=== PATIENT | male | born 1965 | race Caucasian/White ===

== ENCOUNTER 2017-10-02 11:20 | Inpatient (IN) | payer SELFPAY ==
[2017-10-02] VITALS (9 sets, daily range): BP systolic 107–130; BP diastolic 59–74; PULSE 70–80; RESP 14–20; TEMP 98.1–100.1; O2SAT 96–100
[~2017-10-02] VITALS: Ht 182.9 cm; Wt 80.0 kg
[~2017-10-02 11:20] MED LIST: CEPH500T PO; HYDR10TA16 PO; PERM5CRE TOPICAL; PERM5CRE11 TOPICAL; SULF1TAB47 PO; Z.0.NO CURRENT MEDS
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
[2017-10-02] MEDS ORDERED: SODIUM CHLORIDE 0.9% FLUSH 10 ML FLUSH IVF PRN (11:45)
[2017-10-02 12:22] LABS: BASOPHIL # 0.1 TH/MM3 (0-0.2); BASOPHIL % 0.8 % (0.0-2.0); EOSINOPHIL # 0.1 TH/MM3 (0-0.4); EOSINOPHIL % 1.8 % (0.0-4.0); LYMPH % 15.2 % (9.0-44.0); MEAN CELL VOLUME 77.4 FL (80.0-100.0); MEAN CORPUSCULAR HEMOGLOBIN 24.3 PG (27.0-34.0); MEAN CORPUSCULAR HGB CONC 31.4 % (32.0-36.0); MONO % 9.2 % (0.0-8.0); PLATELET COUNT 190 TH/MM3 (150-450); RED BLOOD COUNT 2.35 MIL/MM3 (4.50-5.90); RED CELL DISTRIBUTION WIDTH 18.9 % (11.6-17.2); WHITE BLOOD COUNT 6.8 TH/MM3 (4.0-11.0)
--- NOTE | 2017-10-02 12:22 | RADRPT ---
EXAM DATE/TIME: 10/02/2017 12:16 [facility] COMPARISON: No previous studies available for comparison. INDICATIONS : Bilateral lower extremity edema for 4 days, some upper abdominal discomfort, slightly short of breath MEDICAL HISTORY : None. SURGICAL HISTORY : None. ENCOUNTER: Initial ACUITY: 4 - 6 days PAIN SCORE: 0/10 LOCATION: Bilateral FINDINGS: A single view of the chest demonstrates the lungs to be symmetrically aerated with bibasilar linear a telectatic changes. There is some blunting of both costophrenic angles possibly representing associat ed small effusions. Heart size is normal. Osseous structures are intact. CONCLUSION: 1. Bibasilar linear atelectatic changes with possible small effusions. 2. No confluent infiltrate. Silvestre Flores MD on October 02, 2017 at 12:19 Board Certified Radiologist. This report was verified electronically.
[2017-10-02 12:26] LABS: HEMO FLAGS AUTO DIFF
[2017-10-02 12:31] LABS: HEMATOCRIT 18.2 % (39.0-51.0)
[2017-10-02 12:32] LABS: APTT (PATIENT) 29.4 SEC (24.3-30.1); INTERNATIONAL NORMALIZED RATIO 1.1 RATIO
[2017-10-02] MEDS ORDERED: SODIUM CHLOR 0.9% 1000 ML INJ 1,000 ML IV ONE (12:45)
[2017-10-02 12:47] LABS: ALT (GPT) 46 U/L (12-78); ANION GAP 9 MEQ/L (5-15); AST (GOT) 37 U/L (15-37); BICARBONATE 22.9 MEQ/L (21.0-32.0); BLOOD UREA NITROGEN 14 MG/DL (7-18); CHLORIDE 105 MEQ/L (98-107); GLOMERULAR FILTRATION RATE 148 ML/MIN (>89); POTASSIUM 3.7 MEQ/L (3.5-5.1); SODIUM (NA) 137 MEQ/L (136-145)
[2017-10-02 12:49] LABS: ALKALINE PHOSPHATASE 120 U/L (45-117); TOTAL BILIRUBIN ADULT 0.4 MG/DL (0.2-1.0)
[2017-10-02 13:06] LABS: BLOOD, URINE NEG (NEG); COMMENT (UR) CULT NOT INDICATED; CULTURE IF INDICATED CULT NOT INDICATED; GLUCOSE,URINE NEG (NEG); KETONE, URINE NEG (NEG); MUCUS URINE MANY /lpf (OCC); NITRITE,URINE NEG (NEG); URINE COLOR YELLOW (YELLW/STRAW)
[2017-10-02 13:07] LABS: REVIEW FLAG FINAL
[2017-10-02 13:08] LABS: HEMATOCRIT 17.1 % (39.0-51.0)
[2017-10-02] MEDS ORDERED: diphenhydrAMINE HCL 25 MG CAP PO ONE (13:15)
[2017-10-02] MEDS ORDERED: SODIUM CHLOR 0.9% 250 ML INJ 250 ML IV ONE (13:15)
[2017-10-02] MEDS ORDERED: ACETAMINOPHEN 325 MG TAB PO ONE (13:15)
[2017-10-02 13:33] LABS: SCAN/DIFF AUTO DIFF CONFIRMED
[2017-10-02] MEDS ORDERED: MORPHINE SULFATE 4 MG/ML INJ IV PUSH PRN (14:00)
[2017-10-02] MEDS ORDERED: ONDANSETRON HCL 4 MG/2 ML VIAL IVP PRN (14:00)
[2017-10-02] MEDS ORDERED: SODIUM CHLORIDE 0.9% FLUSH 10 ML FLUSH IV FLUSH PRN (14:00)
[2017-10-02] MEDS ORDERED: MAGNESIUM HYDROXIDE SUSP 30 ML CUP PO PRN (14:00)
[2017-10-02] MEDS ORDERED: NALOXONE HCL 0.4 MG/ML AMP IV PUSH PRN (14:00)
[2017-10-02] MEDS ORDERED: cloNIDine HCL 0.1 MG TAB PO PRN (15:45)
[2017-10-02] MEDS ORDERED: MORPHINE SULFATE 15 MG CONTROLLED RELEASE TAB PO ONE (15:45)
--- NOTE | 2017-10-02 16:26 | PD.CONS ---
HPI History of Present Illness This is a 52 year old male with Hep C who presented with lower leg swelling. Denies bleeding currently but admits black tarry stool a couple weeks ago for a couple days. Admits episode of bright red blood in the stool "months" ago. Admits RUQ pain for the last year, worsening and constant. NO exacerbating or relieving facotrs. Admits abd swelling for the last week but it is improving. Admits loss 40lbs in the last 9 months, unintended. Never had EGD or colonoscopy. He was pos for hep C 4 y ago but has not had further testing or follow up. (Karli Mitchell) PFSH Past Medical History ?Hep C Past Surgical History none (Karli Mitchell) Coded Allergies: No Known Allergies (Verified Allergy, Unknown, 10/02/17) Family History denies Social History quit drinking 9mos ago, prior was heavy drinker for 30 y 1ppd admits IV use heroin (Karli Mitchell) Review of Systems Constitutional: COMPLAINS OF: Weight loss, DENIES: Fever Eyes: DENIES: Blurred vision Ears, nose, mouth, throat: DENIES: Hearing loss Respiratory: DENIES: Hemoptysis Cardiovascular: DENIES: Chest pain Gastrointestinal: COMPLAINS OF: Abdominal pain, Black stools, DENIES: Bloody stools, Constipation, Diarrhea, Nausea, Vomiting, Hematemesis Genitourinary: DENIES: Hematuria Musculoskeletal: DENIES: Joint Swelling Integumentary: DENIES: Jaundice Hematologic/lymphatic: DENIES: Bruising Neurologic: DENIES: Abnormal gait Psychiatric: DENIES: Confusion (Karli Mitchell) GI Exam Vitals I&O Vital Signs Date Time Temp Pulse Resp B/P (MAP) Pulse Ox O2 Delivery O2 Flow Rate FiO2 10/02/17 14:40 74 14 109/67 (81) 98 Room Air 10/02/17 13:17 70 16 112/60 (77) 96 Room Air 10/02/17 11:21 99.1 80 20 118/59 (78) 100 Room Air Imaging e Laboratory Tests Test 10/02/17 11:55 10/02/17 12:00 10/02/17 12:50 White Blood Count 6.8 TH/MM3 (4.0-11.0) Red Blood Count 2.35 MIL/MM3 (4.50-5.90) Hemoglobin 5.7 GM/DL (13.0-17.0) 5.4 GM/DL (13.0-17.0) Hematocrit 18.2 % (39.0-51.0) 17.1 % (39.0-51.0) Mean Corpuscular Volume 77.4 FL (80.0-100.0) Mean Corpuscular Hemoglobin 24.3 PG (27.0-34.0) Mean Corpuscular Hemoglobin Concent 31.4 % (32.0-36.0) Red Cell Distribution Width 18.9 % (11.6-17.2) Platelet Count 190 TH/MM3 (150-450) Mean Platelet Volume 8.0 FL (7.0-11.0) Neutrophils (%) (Auto) 73.0 % (16.0-70.0) Lymphocytes (%) (Auto) 15.2 % (9.0-44.0) Monocytes (%) (Auto) 9.2 % (0.0-8.0) Eosinophils (%) (Auto) 1.8 % (0.0-4.0) Basophils (%) (Auto) 0.8 % (0.0-2.0) Neutrophils # (Auto) 5.0 TH/MM3 (1.8-7.7) Lymphocytes # (Auto) 1.0 TH/MM3 (1.0-4.8) Monocytes # (Auto) 0.6 TH/MM3 (0-0.9) Eosinophils # (Auto) 0.1 TH/MM3 (0-0.4) Basophils # (Auto) 0.1 TH/MM3 (0-0.2) CBC Comment AUTO DIFF Differential Comment AUTO DIFF CONFIRMED Prothrombin Time 12.0 SEC (9.8-11.6) Prothromb Time International Ratio 1.1 RATIO Activated Partial Thromboplast Time 29.4 SEC (24.3-30.1) Blood Urea Nitrogen 14 MG/DL (7-18) Creatinine 0.58 MG/DL (0.60-1.30) Random Glucose 89 MG/DL (74-106) Total Protein 6.1 GM/DL (6.4-8.2) Albumin 2.6 GM/DL (3.4-5.0) Calcium Level 7.5 MG/DL (8.5-10.1) Alkaline Phosphatase 120 U/L (45-117) Aspartate Amino Transf (AST/SGOT) 37 U/L (15-37) Alanine Aminotransferase (ALT/SGPT) 46 U/L (12-78) Total Bilirubin 0.4 MG/DL (0.2-1.0) Sodium Level 137 MEQ/L (136-145) Potassium Level 3.7 MEQ/L (3.5-5.1) Chloride Level 105 MEQ/L (98-107) Carbon Dioxide Level 22.9 MEQ/L (21.0-32.0) Anion Gap 9 MEQ/L (5-15) Estimat Glomerular Filtration Rate 148 ML/MIN (>89) B-Type Natriuretic Peptide 191 PG/ML (0-100) Lipase 240 U/L (73-393) Urine Color YELLOW (YELLW/STRAW) Urine Turbidity HAZY (CLEAR) Urine pH 6.0 (5.0-8.5) Urine Specific [place] 1.033 (1.002-1.035) Urine Protein 30 mg/dL (NEG-TRACE) Urine Glucose (UA) NEG mg/dL (NEG) Urine Ketones NEG mg/dL (NEG) Urine Occult Blood NEG (NEG) Urine Nitrite NEG (NEG) Urine Bilirubin NEG (NEG) Urine Urobilinogen 2.0 MG/DL (LESS THAN Urine Leukocyte Esterase TRACE (NEG) Urine RBC 2 /hpf (0-3) Urine WBC 2 /hpf (0-5) Urine Mucus MANY /lpf (OCC) Microscopic Urinalysis Comment CULT NOT INDICATED Last Impressions Chest X-Ray 10/02/17 1144 Signed Impressions: Service Date/Time: September 12:16 - CONCLUSION: 1. Bibasilar linear atelectatic changes with possible small effusions. 2. No confluent infiltrate. Silvestre Flores MD Laboratory Test 10/02/17 11:55 10/02/17 12:00 10/02/17 12:50 White Blood Count 6.8 TH/MM3 Red Blood Count 2.35 MIL/MM3 Hemoglobin 5.7 GM/DL 5.4 GM/DL Hematocrit 18.2 % 17.1 % Mean Corpuscular Volume 77.4 FL Mean Corpuscular Hemoglobin 24.3 PG Mean Corpuscular Hemoglobin Concent 31.4 % Red Cell Distribution Width 18.9 % Platelet Count 190 TH/MM3 Mean Platelet Volume 8.0 FL Neutrophils (%) (Auto) 73.0 % Lymphocytes (%) (Auto) 15.2 % Monocytes (%) (Auto) 9.2 % Eosinophils (%) (Auto) 1.8 % Basophils (%) (Auto) 0.8 % Neutrophils # (Auto) 5.0 TH/MM3 Lymphocytes # (Auto) 1.0 TH/MM3 Monocytes # (Auto) 0.6 TH/MM3 Eosinophils # (Auto) 0.1 TH/MM3 Basophils # (Auto) 0.1 TH/MM3 CBC Comment AUTO DIFF Differential Comment AUTO DIFF CONFIRMED Prothrombin Time 12.0 SEC Prothromb Time International Ratio 1.1 RATIO Activated Partial Thromboplast Time 29.4 SEC Blood Urea Nitrogen 14 MG/DL Creatinine 0.58 MG/DL Random Glucose 89 MG/DL Total Protein 6.1 GM/DL Albumin 2.6 GM/DL Calcium Level 7.5 MG/DL Alkaline Phosphatase 120 U/L Aspartate Amino Transf (AST/SGOT) 37 U/L Alanine Aminotransferase (ALT/SGPT) 46 U/L Total Bilirubin 0.4 MG/DL Sodium Level 137 MEQ/L Potassium Level 3.7 MEQ/L Chloride Level 105 MEQ/L Carbon Dioxide Level 22.9 MEQ/L Anion Gap 9 MEQ/L Estimat Glomerular Filtration Rate 148 ML/MIN B-Type Natriuretic Peptide 191 PG/ML Lipase 240 U/L Urine Color YELLOW Urine Turbidity HAZY Urine pH 6.0 Urine Specific [place] 1.033 Urine Protein 30 mg/dL Urine Glucose (UA) NEG mg/dL Urine Ketones NEG mg/dL Urine Occult Blood NEG Urine Nitrite NEG Urine Bilirubin NEG Urine Urobilinogen 2.0 MG/DL Urine Leukocyte Esterase TRACE Urine RBC 2 /hpf Urine WBC 2 /hpf Urine Mucus MANY /lpf Microscopic Urinalysis Comment CULT NOT INDICATED Physical Examination HEENT: PERRL; normocephalic; atraumatic; no jaundice. CHEST: CTA CARDIAC: RRR + murmur ABDOMEN: Soft, mildly distended, RUQ TTP, hepatomegaly; bowel sounds are present in all four quadrants. EXTREMITIES: No clubbing, cyanosis; +2 pitting edema BLE SKIN: Normal; no rash; no jaundice. NUCLEAR INSTRUCTOR: No focal deficits; alert and oriented times three. (Karli Mitchell) Assessment and Plan Plan ASSESSMENT - anemia - hgb 5.7 on admission. microcytic hypochromic. has had previous episodes black tarry stool, blood in stool but none currently. never had EGD or colonoscopy - RUQ pain, abd distention - unclear etiology. hepatomegaly. hx hep c per pt. PLAN - EGD/colonoscopy in am - obtain consent - clears today - npo after midnight - mg citrate prep - await blood transfusion - US liver - hep profile - monitor labs - further recs to follow This pt seen by myself and Dr Bruce and this note is written on his behalf (Karli Mitchell) Physician Comments Patient seen and examined Agree with above Continue with current supportive care Monitor labs Plan for an EGD and a colonoscopy tomorrow Liver workup (Mook Bruce MD) Karli Mitchell Oct 02, 2017 16:26 Mook Bruce MD Oct 02, 2017 23:01
--- NOTE | 2017-10-02 17:57 | HHI.HP ---
[facility] Service [facility] Primary Care Physician No Primary Care Physician Admission Diagnosis Anemia, Edema, Liver disease. Diagnoses: (1) Severe anemia Diagnosis: Principal (2) Liver disease Diagnosis: Principal (3) Hepatitis C Diagnosis: Principal (4) GI bleed Diagnosis: Principal Travel History International Travel<30 Days: No Contact w/Intl Traveler <30 Da: No Traveled to Known Affected Are: No History of Present Illness Mr. Beard is a 52-year-old male. He came into the hospital secondary to bilateral lower extremity swelling. He has known hepatitis C and these extremities may be swollen secondary to chronic liver disease. He is never had a workup to quantify the degree of liver disease that he has. Blood work was obtained and shows a hemoglobin of 5.4. Patient has not had many symptoms of this may represent a slow bleed. I discussed signs and symptoms of GI bleeding with the patient and he reports that he has recurrent and intermittent episodes of melena. Coagulopathy versus ulcer versus varices could match his clinical status. Lower extremity swelling can be present in the presence of the degree of anemia that he has. So, this could be another etiology for his lower extremity edema. Finally he admits that he uses heroin he last used heroin last night, he has some concerns that he may start withdrawing. No other complaints. Review of Systems Constitutional: COMPLAINS OF: Fatigue, DENIES: Fever, Chills, Night Sweats Eyes: DENIES: Blurred vision, Diplopia, Eye inflammation, Eye pain Ears, nose, mouth, throat: DENIES: Tinnitus, Hearing loss, Vertigo Respiratory: DENIES: Apneas, Cough, Snoring, Wheezing, Hemoptysis, Shortness of breath Cardiovascular: COMPLAINS OF: Lower Extremity Edema, DENIES: Chest pain, Palpitations, Syncope Gastrointestinal: COMPLAINS OF: Black stools, DENIES: Abdominal pain, Bloody stools Musculoskeletal: DENIES: Joint pain, Muscle aches, Stiffness Integumentary: DENIES: Abnormal pigmentation, Nail changes, Pruritus, Rash Hematologic/lymphatic: DENIES: Bruising, Lymphadenopathy Immunologic/allergic: DENIES: Eczema, Urticaria Neurologic: DENIES: Abnormal gait, Headache, Paresthesias Psychiatric: DENIES: Anxiety, Confusion, Hallucinations Past Family Social History Past Medical History Hepatitis C Liver disease Heroin abuse Presbycusis Past Surgical History Tonsillectomy Reported Medications Reported Meds & Active Scripts Active No Active Prescriptions or Reported Medications Allergies: Coded Allergies: No Known Allergies (Verified Allergy, Unknown, 10/02/17) Active Ordered Medications Administered Medications Medications (Trade) Dose Ordered Sig/Concepcion Route PRN Reason Start Time Stop Time Status Last Admin Dose Admin Sodium Chloride 250 ml @ 15 mls/hr ONCE ONCE IV 10/02/17 13:15 10/03/17 05:54 10/02/17 17:29 Family History Diabetes mellitus type 2 in mother Social History History of alcohol abuse, quit drinking 6 months ago Smoking 1ppd IV Drug abuse with Heroin Physical Exam Vital Signs Vital Signs Date Time Temp Pulse Resp B/P (MAP) Pulse Ox O2 Delivery O2 Flow Rate FiO2 10/02/17 16:52 100.1 75 18 118/71 (87) 99 10/02/17 16:49 10/02/17 14:40 74 14 109/67 (81) 98 Room Air 10/02/17 13:17 70 16 112/60 (77) 96 Room Air 10/02/17 11:21 99.1 80 20 118/59 (78) 100 Room Air Physical Exam GENERAL: NAD, A&Ox3 HEAD: Normocephalic. NECK: Supple, trachea midline. No lymphadenopathy. EYES: No scleral icterus. No injection or drainage. CARDIOVASCULAR: Regular rate and rhythm without murmurs, gallops, or rubs. RESPIRATORY: Breath sounds equal bilaterally. No accessory muscle use. GASTROINTESTINAL: Abdomen soft, non-tender, nondistended. MUSCULOSKELETAL: No cyanosis. Bilateral lower extremity pitting edema as high as the knees. SKIN: Warm and dry. NEURO: No focal neurological deficitis. Laboratory Laboratory Tests Test 10/02/17 11:55 10/02/17 12:00 10/02/17 12:50 White Blood Count 6.8 Red Blood Count 2.35 Hemoglobin 5.7 5.4 Hematocrit 18.2 17.1 Mean Corpuscular Volume 77.4 Mean Corpuscular Hemoglobin 24.3 Mean Corpuscular Hemoglobin Concent 31.4 Red Cell Distribution Width 18.9 Platelet Count 190 Mean Platelet Volume 8.0 Neutrophils (%) (Auto) 73.0 Lymphocytes (%) (Auto) 15.2 Monocytes (%) (Auto) 9.2 Eosinophils (%) (Auto) 1.8 Basophils (%) (Auto) 0.8 Neutrophils # (Auto) 5.0 Lymphocytes # (Auto) 1.0 Monocytes # (Auto) 0.6 Eosinophils # (Auto) 0.1 Basophils # (Auto) 0.1 CBC Comment AUTO DIFF Differential Comment AUTO DIFF CONFIRMED Prothrombin Time 12.0 Prothromb Time International Ratio 1.1 Activated Partial Thromboplast Time 29.4 Blood Urea Nitrogen 14 Creatinine 0.58 Random Glucose 89 Total Protein 6.1 Albumin 2.6 Calcium Level 7.5 Alkaline Phosphatase 120 Aspartate Amino Transf (AST/SGOT) 37 Alanine Aminotransferase (ALT/SGPT) 46 Total Bilirubin 0.4 Sodium Level 137 Potassium Level 3.7 Chloride Level 105 Carbon Dioxide Level 22.9 Anion Gap 9 Estimat Glomerular Filtration Rate 148 B-Type Natriuretic Peptide 191 Lipase 240 Urine Color YELLOW Urine Turbidity HAZY Urine pH 6.0 Urine Specific [place] 1.033 Urine Protein 30 Urine Glucose (UA) NEG Urine Ketones NEG Urine Occult Blood NEG Urine Nitrite NEG Urine Bilirubin NEG Urine Urobilinogen 2.0 Urine Leukocyte Esterase TRACE Urine RBC 2 Urine WBC 2 Urine Mucus MANY Microscopic Urinalysis Comment CULT NOT INDICATED Result Diagram: 10/02/17 1250 10/02/17 1155 Caprini VTE Risk Assessment Caprini VTE Risk Assessment: Mod/High Risk (score >= 2) VTE Pharm Contraindication: High risk for bleeding VTE [facility] Contraindication: Severe LE edema Caprini Risk Assessment Model Point Value = 1 Point Value = 2 Point Value = 3 Point Value = 5 Age 41-60 Minor surgery BMI > 25 kg/m2 Swollen legs Varicose veins or History of unexplained or recurrent spontaneous Oral contraceptives or hormone replacement Sepsis (< 1 month) Serious lung disease, including pneumonia (< 1 month) Abnormal pulmonary function Acute myocardial infarction Congestive heart failure (< 1 month) History of inflammatory bowel disease Medical patient at bed rest Age 61-74 Arthroscopic surgery Major open surgery (> 45 min) Laparoscopic surgery (> 45 min) Malignancy Confined to bed (> 72 hours) Immobilizing plaster cast Central venous access Age >= 75 History of VTE Family history of VTE Factor V Leiden Prothrombin [id number] Lupus anticoagulant Anticardiolipin antibodies Elevated serum homocysteine Heparin-induced thrombocytopenia Other congenital or acquired thrombophilia Stroke (< 1 month) Elective arthroplasty Hip, pelvis, or leg fracture Acute spinal cord injury (< 1 month) Prophylaxis Regimen Total Risk Factor Score Risk Level Prophylaxis Regimen 0-1 Low Early ambulation 2 Moderate Order ONE of the following: *Sequential Compression Device (SCD) *Heparin 5000 units SQ BID 3-4 Higher Order ONE of the following medications: *Heparin 5000 units SQ TID *Enoxaparin/Lovenox 40 mg SQ daily (WT < 150 kg, CrCl > 30 mL/min) *Enoxaparin/Lovenox 30 mg SQ daily (WT < 150 kg, CrCl > 10-29 mL/min) *Enoxaparin/Lovenox 30 mg SQ BID (WT < 150 kg, CrCl > 30 mL/min) AND/OR *Sequential Compression Device (SCD) 5 or more Highest Order ONE of the following medications: *Heparin 5000 units SQ TID (Preferred with Epidurals) *Enoxaparin/Lovenox 40 mg SQ daily (WT < 150 kg, CrCl > 30 mL/min) *Enoxaparin/Lovenox 30 mg SQ daily (WT < 150 kg, CrCl > 10-29 mL/min) *Enoxaparin/Lovenox 30 mg SQ BID (WT < 150 kg, CrCl > 30 mL/min) AND *Sequential Compression Device (SCD) Assessment and Plan Problem List: (1) Severe anemia ICD Code: D64.9 - Anemia, unspecified (2) GI bleed ICD Code: K92.2 - Gastrointestinal hemorrhage, unspecified (3) Hepatitis C ICD Code: B19.20 - Unspecified viral hepatitis C without hepatic coma (4) Liver disease ICD Code: K76.9 - Liver disease, unspecified Assessment and Plan Assessment and plan 52-year-old male admitted secondary to severe anemia Severe anemia Recent GI bleed Transfused 2 units packed red blood cells on 10/02/17 Monitor for clinical signs and symptoms Follow CBC Etiology may be related to recurrent GI bleeds Etiology also may be complicated by liver disease GI consulted for history of recurrent GI bleeds, per patient Hepatitis C Liver disease Degree of liver disease unknown GI consulted Nicotine dependence NicoDerm Heroin abuse Heroin withdrawal MS Contin every 12 hours As needed IV morphine As needed Xanax As needed clonidine HIV screen Hepatitis panel Lower extremity edema Start Lasix daily Monitor for improvement DVT prophylaxis Not a candidate for anticoagulation due to degree of anemia Not a good candidate for SCDs due to degree of edema Physician Certification 2 Midnight Certification Type: Admission for Inpatient Services Order for Inpatient Services The services are ordered in accordance with Medicare regulations or non- Medicare payer requirements, as applicable. In the case of services not specified as inpatient-only, they are appropriately provided as inpatient services in accordance with the 2-midnight benchmark. Estimated LOS (days): 2 days is the estimated time the patient will need to remain in the hospital, assuming treatment plan goals are met and no additional complications. Post-Hospital Plan: Home Jhonny Alejandre MD Oct 02, 2017 17:57
[2017-10-02] MEDS ORDERED: NICOTINE 21 MG/24 HR PATCH T-DERMAL ONE (18:00)
[2017-10-02] MEDS ORDERED: ALPRAZolam 0.5 MG TAB PO PRN (18:00)
[2017-10-02] MEDS ORDERED: MAGNESIUM CITRATE SOLN 300 ML BTL PO ONE ×2 (18:00→21:00)
[2017-10-02] MEDS ORDERED: OLANZapine 10 MG TAB PO ONE (18:45)
--- NOTE | 2017-10-02 18:47 | RADRPT ---
EXAM DATE/TIME: 10/02/2017 18:13 [facility] COMPARISON: No previous studies available for comparison. INDICATIONS : Right upper quadrant pain with history of Hepatitis C. MEDICAL HISTORY : Hepatitis C. ETOH abuse. SURGICAL HISTORY : Tonsillectomy. ENCOUNTER: Initial ACUITY: 1 day PAIN SCORE: 2/10 LOCATION: Abdomen. MEASUREMENTS: LIVER: 16.5 cm length COMMON DUCT: 2 mm RIGHT KIDNEY: 12.8 x 6.9 x 6.1 cm SPLEEN: 14.6 cm length FINDINGS: LIVER: The liver is diffusely heterogeneous with nodular liver surface. No focal hepatic mass is seen. There is moderate ascites seen. COMMON DUCT: No intraluminal mass or stone visualized. GALLBLADDER: The gallbladder wall is thickened. Gallstones are not seen. PANCREAS: The visualized portions are within normal limits. RIGHT KIDNEY: No hydronephrosis, stone or mass. SPLEEN: The spleen is enlarged. CONCLUSION: 1. Cirrhotic appearing liver with moderate ascites. 2. Nonspecific splenomegaly. This could be from portal hypertension. 3. Thickening of the gallbladder wall. This is nonspecific. It can be seen with hepatic dysfunction. Gallstones were not seen. Sandip Luna MD on October 02, 2017 at 18:44 Board Certified Radiologist. This report was verified electronically.
[2017-10-02] MEDS: SODIUM CHLORIDE 0.9% FLUSH 10 ML FLUSH IV FLUSH SCH (20:52)
[2017-10-02] MEDS: MORPHINE SULFATE 4 MG/ML INJ IV PUSH PRN (22:41)
[2017-10-03] VITALS (10 sets, daily range): BP systolic 109–131; BP diastolic 59–80; PULSE 64–78; RESP 18–20; TEMP 98–99; O2SAT 92–100
[2017-10-03] MEDS: MORPHINE SULFATE 4 MG/ML INJ IV PUSH PRN ×3 (04:31→19:46)
[2017-10-03] MEDS ORDERED: LACTATED RINGER'S 1000 ML IV PRN (06:15)
[2017-10-03] MEDS ORDERED: METOPROLOL TARTRATE 25 MG TAB PO PRN (06:15)
[2017-10-03] MEDS ORDERED: CHLORHEXIDINE GLUCONATE 2 % 1 PACK (2 CLOTHS) TOPICAL PRN (06:15)
[2017-10-03] MEDS ORDERED: SODIUM CHLORID 0.9% 500 ML IV PRN (06:15)
[2017-10-03] MEDS ORDERED: POVIDONE IODINE 5% (ANTISEPSIS KIT) 4 APPLICATIONS EACH NARE PRN (06:15)
[2017-10-03] MEDS: MORPHINE SULFATE 15 MG CONTROLLED RELEASE TAB PO SCH ×2 (08:09→21:33)
[2017-10-03] MEDS: REMOVE OLD PATCH T-DERMAL SCH (08:10)
[2017-10-03] MEDS: SODIUM CHLORIDE 0.9% FLUSH 10 ML FLUSH IV FLUSH SCH ×2 (08:10→19:47)
[2017-10-03] MEDS: NICOTINE 21 MG/24 HR PATCH T-DERMAL SCH (08:10)
[2017-10-03 09:51] LABS: AUTOMATED NEUTROPHIL # 3.4 TH/MM3 (1.8-7.7); BASOPHIL # 0.1 TH/MM3 (0-0.2); BASOPHIL % 1.1 % (0.0-2.0); EOSINOPHIL # 0.1 TH/MM3 (0-0.4); EOSINOPHIL % 1.6 % (0.0-4.0); HEMATOCRIT 25.4 % (39.0-51.0); HEMO FLAGS DIFF FINAL; LYMPHOCYTE # 1.3 TH/MM3 (1.0-4.8); MEAN CELL VOLUME 77.9 FL (80.0-100.0); MEAN CORPUSCULAR HEMOGLOBIN 25.3 PG (27.0-34.0); MEAN CORPUSCULAR HGB CONC 32.5 % (32.0-36.0); NEUT % 65.3 % (16.0-70.0); PLATELET COUNT 205 TH/MM3 (150-450); RED BLOOD COUNT 3.26 MIL/MM3 (4.50-5.90); RED CELL DISTRIBUTION WIDTH 18.5 % (11.6-17.2); WHITE BLOOD COUNT 5.2 TH/MM3 (4.0-11.0)
[2017-10-03] MEDS ORDERED: INFLUENZA VIRUS VACCINE (QUADRIVALENT) 0.5 ML SYR IM ONE (10:00)
[2017-10-03] MEDS ORDERED: PNEUMOCOCCAL POLYVALENT INJ 25 MCG/0.5 ML SYR IM ONE (10:00)
--- NOTE | 2017-10-03 11:25 | PD.PROCEDR ---
GI Procedure REFERRING PHYSICIAN Dr. Alejandre PROCEDURE PERFORMED EGD with biopsy followed by colonoscopy with snare polypectomy INDICATION FOR PROCEDURE Anemia, abdominal pain, PROCEDURE: The procedure, risks and benefits were discussed with Mr. Beard and informed consent was obtained. Anesthesia sedated him with Diprivan. He was placed in the left lateral decubitus position. EGD: The Pentax videoscope was introduced through the oropharynx and advanced to the second portion of the duodenum under direct visualization. Retroflexion was performed in the stomach. FINDINGS: Esophagus this was normal The stomach this too appeared to be unremarkable within normal limits The duodenum this too was normal random biopsies were taken for further evaluation Colonoscopy: The Pentax videoscope was introduced through the rectum and advanced to cecum where the ileocecal valve and appendiceal orifice were identified. Retroflexion was performed in the rectum. Colonic prep was good but there was quite a bit of spasms and incomplete distention in several segments of the colon FINDINGS: Colonic withdrawal time greater than 6 minutes as the scope was slowly withdrawn colonic mucosa was carefully inspected the patient was noted to have 3 polyps 2 in the rectum and one in the sigmoid these were medium-sized sessile they were excised using cold snare technique one of the polyps was lost the patient was also noted to have mild diverticulosis of the sigmoid region otherwise colonic examination was unremarkable so as retroflexion in rectal examination ESTIMATED BLOOD LOSS: None SPECIMENS REMOVED: Duodenal and colonic samples COMPLICATIONS: None IMPRESSION: Normal EGD Diverticulosis Colon polyps PLAN: Await biopsies Small bowel follow-through Colonoscopy in 3 years Mook Bruce MD Oct 03, 2017 11:25
[2017-10-03] MEDS ORDERED: MAGNESIUM CITRATE SOLN 300 ML BTL PO ONE ×2 (12:00→18:00)
--- NOTE | 2017-10-03 12:45 | HHI.PR ---
Subjective Remarks Hgb level has increased to 8.3 status post transfusion. EGD and colonoscopy has not revealed any acute pathology to explain his degree of anemia. Diverticulosis is present on colonoscopy. No ulcers or varices on EGD. Patient complains of upper abdominal pain which is a chronic problem for him. Objective Vital Signs Date Time Temp Pulse Resp B/P (MAP) Pulse Ox O2 Delivery O2 Flow Rate FiO2 10/03/17 11:36 66 16 123/88 (100) 99 Room Air 10/03/17 11:17 98.1 68 16 120/67 (84) 99 Room Air 10/03/17 08:30 Room Air 10/03/17 08:00 98.3 64 20 123/67 (85) 100 10/03/17 04:00 98.1 68 18 109/59 (76) 100 10/03/17 01:00 Room Air 10/03/17 00:52 98.0 66 20 123/68 (86) 100 10/03/17 00:20 66 10/03/17 00:15 98.0 66 20 123/68 100 10/02/17 23:00 14 10/02/17 20:50 98.3 73 14 118/67 99 10/02/17 20:34 98.5 73 14 107/66 98 10/02/17 19:48 98.5 77 18 114/62 (79) 99 10/02/17 18:11 98.7 80 18 130/68 99 10/02/17 17:46 98.1 73 16 122/74 99 10/02/17 16:52 100.1 75 18 118/71 (87) 99 10/02/17 16:49 10/02/17 14:40 74 14 109/67 (81) 98 Room Air 10/02/17 13:17 70 16 112/60 (77) 96 Room Air I/O 10/02/17 10/02/17 10/02/17 10/03/17 10/03/17 10/03/17 07:00 15:00 23:00 07:00 15:00 23:00 Intake Total 531.3 ml 1060 ml 900 ml Balance 531.3 ml 1060 ml 900 ml Intake IV Total 100 ml Packed Cells 400 ml 1050 ml Blood Product IV Normal Saline Flush 31.3 ml 10 ml Other 900 ml # Voids 0 # Bowel Movements 0 Result Diagram: 10/03/17 0736 10/02/17 1155 Objective Remarks GENERAL: NAD, A&Ox3 HEAD: Normocephalic. NECK: Supple, trachea midline. No lymphadenopathy. EYES: No scleral icterus. No injection or drainage. CARDIOVASCULAR: Regular rate and rhythm without murmurs, gallops, or rubs. RESPIRATORY: Breath sounds equal bilaterally. No accessory muscle use. GASTROINTESTINAL: Abdomen soft, non-tender, nondistended. MUSCULOSKELETAL: No cyanosis, or edema. SKIN: Warm and dry. NEURO: No focal neurological deficitis. A/P Problem List: (1) Severe anemia ICD Code: D64.9 - Anemia, unspecified (2) GI bleed ICD Code: K92.2 - Gastrointestinal hemorrhage, unspecified (3) Hepatitis C ICD Code: B19.20 - Unspecified viral hepatitis C without hepatic coma (4) Liver disease ICD Code: K76.9 - Liver disease, unspecified Assessment and Plan Assessment and plan 52-year-old male admitted secondary to severe anemia Severe anemia Recent GI bleed Transfused 2 units packed red blood cells on 10/02/17 Follow CBC EGD and colonoscopy are negative GI following Hepatitis C Liver disease Degree of liver disease unknown Nicotine dependence NicoDerm Heroin abuse Heroin withdrawal MS Contin every 12 hours As needed IV morphine As needed Xanax As needed clonidine HIV screen pending Hepatitis panel pending Lower extremity edema Start Lasix daily Monitor for improvement DVT prophylaxis Not a candidate for anticoagulation due to degree of anemia Not a good candidate for SCDs due to degree of edema Jhonny Alejandre MD Oct 03, 2017 12:45
[2017-10-03] MEDS ORDERED: MORPHINE SULFATE 8 MG/ML INJ IV PUSH PRN (14:00)
--- NOTE | 2017-10-03 15:02 | RADRPT ---
EXAM DATE/TIME: 10/03/2017 13:28 [facility] COMPARISON: No previous studies available for comparison. INDICATIONS : Anemia. GI bleed. FLUORO TIME: 1 minutes IMAGE COUNT: 14 CONTRAST: Entero Vu 24% Barium Sulfate (24% w/v, 20% w/w) IMAGING TIME(S): 15 min, 30 min, 45 min, 1 hr MEDICAL HISTORY : Hepatitis C. ETOH abuse. SURGICAL HISTORY : Tonsillectomy. ENCOUNTER: Initial ACUITY: 1 day PAIN SCORE: 6/10 LOCATION: abdomen FINDINGS: Preliminary film is unremarkable. The stomach is grossly unremarkable. Examination of the small bowel demonstrates normal mucosal pattern involving the jejunum and ileum. There is no evidence of mass or obstruction. No intraluminal filling defects are identified. Small bowel transit time is normal at 90 minutes. Fluoroscopy of the abdomen and terminal ileum demonstrat es no abnormality. CONCLUSION: Unremarkable small bowel examination. César Harrison MD on October 03, 2017 at 14:59 Board Certified Radiologist. This report was verified electronically.
[2017-10-03] MEDS: BISACODYL EC 5 MG TABEC PO SCH ×2 (17:13→17:14)
--- NOTE | 2017-10-03 17:58 | EKG ---
Date Performed: 10/02/2017 Time Performed: 11:57:52 PTAGE: 52 years EKG: Sinus rhythm WITH SHORT IN INTERVAL BORDERLINE ECG NO PREVIOUS TRACING DOCTOR: Florencio Sams Interpretating Date/Time 10/03/2017 17:57:37
[2017-10-04] VITALS: BP 118/71; PULSE 69; RESP 19; TEMP 98.8; O2SAT 98
[2017-10-04 04:00] VITALS: BP 114/68; PULSE 65; RESP 20; TEMP 98.6; O2SAT 97
[2017-10-04] MEDS: MORPHINE SULFATE 4 MG/ML INJ IV PUSH PRN ×3 (05:52→12:37)
[2017-10-04 07:40] LABS: AUTOMATED NEUTROPHIL # 3.9 TH/MM3 (1.8-7.7); BASOPHIL % 0.7 % (0.0-2.0); EOSINOPHIL # 0.1 TH/MM3 (0-0.4); EOSINOPHIL % 1.5 % (0.0-4.0); HEMATOCRIT 26.8 % (39.0-51.0); HEMO FLAGS DIFF FINAL; LYMPH % 25.2 % (9.0-44.0); LYMPHOCYTE # 1.5 TH/MM3 (1.0-4.8); MEAN CELL VOLUME 76.7 FL (80.0-100.0); MEAN CORPUSCULAR HEMOGLOBIN 25.2 PG (27.0-34.0); MEAN CORPUSCULAR HGB CONC 32.8 % (32.0-36.0); MONO % 7.6 % (0.0-8.0); PLATELET COUNT 206 TH/MM3 (150-450); RED CELL DISTRIBUTION WIDTH 19.1 % (11.6-17.2)
[2017-10-04 07:41] VITALS: PULSE 76
[2017-10-04 08:00] VITALS: BP 127/72; PULSE 77; RESP 18; TEMP 98.5; O2SAT 99
[2017-10-04 08:05] LABS: ANION GAP 7 MEQ/L (5-15); AST (GOT) 37 U/L (15-37); BICARBONATE 24.6 MEQ/L (21.0-32.0); BLOOD UREA NITROGEN 10 MG/DL (7-18); CHLORIDE 109 MEQ/L (98-107); GLOMERULAR FILTRATION RATE 140 ML/MIN (>89); POTASSIUM 3.6 MEQ/L (3.5-5.1); SODIUM (NA) 141 MEQ/L (136-145)
[2017-10-04 08:10] LABS: ALKALINE PHOSPHATASE 90 U/L (45-117); ALT (GPT) 27 U/L (12-78); TOTAL BILIRUBIN ADULT 0.8 MG/DL (0.2-1.0)
[2017-10-04] MEDS: MORPHINE SULFATE 15 MG CONTROLLED RELEASE TAB PO SCH (08:43)
[2017-10-04] MEDS: REMOVE OLD PATCH T-DERMAL SCH (08:44)
[2017-10-04] MEDS: SODIUM CHLORIDE 0.9% FLUSH 10 ML FLUSH IV FLUSH SCH (08:44)
[2017-10-04] MEDS: NICOTINE 21 MG/24 HR PATCH T-DERMAL SCH (08:44)
[2017-10-04 10:42] LABS: FERRITIN 11 NG/ML (26-388); TRANSFERRIN IRON PROFILE 373 MG/DL (200-360)
[2017-10-04 12:12] VITALS: BP 165/82; PULSE 68; RESP 18; TEMP 98.2; O2SAT 97
[2017-10-04] MEDS ORDERED: ALUMINUM/MAGNESIUM/SIMETH 30 ML CUP PO PRN (13:00)
[2017-10-04] MEDS ORDERED: FUROSEMIDE 20 MG/2 ML VIAL IV PUSH ONE (13:30)
[2017-10-04] MEDS ORDERED: ALUMINUM/MAGNESIUM/SIMETH 30 ML CUP PO ONE (13:30)
[2017-10-04] MEDS ORDERED: FURO20TA PO (13:49)
--- NOTE | 2017-10-04 16:30 | HHI.DS ---
Discharge Summary Admission Date Oct 02, 2017 at 17:36 Discharge Date: Oct 04, 2017 Admitting Diagnosis Anemia, Edema, Liver disease. (1) Severe anemia ICD Code: D64.9 - Anemia, unspecified Diagnosis: Principal (2) GI bleed ICD Code: K92.2 - Gastrointestinal hemorrhage, unspecified Diagnosis: Secondary (3) Hepatitis C ICD Code: B19.20 - Unspecified viral hepatitis C without hepatic coma Diagnosis: Principal (4) Liver disease ICD Code: K76.9 - Liver disease, unspecified Diagnosis: Principal Procedures EGD and colonoscopy Brief History - From Admission Mr. Beard is a 52-year-old male. He came into the hospital secondary to bilateral lower extremity swelling. He has known hepatitis C and these extremities may be swollen secondary to chronic liver disease. He is never had a workup to quantify the degree of liver disease that he has. Blood work was obtained and shows a hemoglobin of 5.4. Patient has not had many symptoms of this may represent a slow bleed. I discussed signs and symptoms of GI bleeding with the patient and he reports that he has recurrent and intermittent episodes of melena. Coagulopathy versus ulcer versus varices could match his clinical status. Lower extremity swelling can be present in the presence of the degree of anemia that he has. So, this could be another etiology for his lower extremity edema. Finally he admits that he uses heroin he last used heroin last night, he has some concerns that he may start withdrawing. No other complaints. CBC/BMP: 10/04/17 0649 10/04/17 0649 Significant Findings Laboratory Tests Test 10/02/17 11:55 10/02/17 12:00 10/02/17 12:50 10/02/17 20:10 Red Blood Count 2.35 MIL/MM3 (4.50-5.90) Hemoglobin 5.7 GM/DL (13.0-17.0) 5.4 GM/DL (13.0-17.0) Hematocrit 18.2 % (39.0-51.0) 17.1 % (39.0-51.0) Mean Corpuscular Volume 77.4 FL (80.0-100.0) Mean Corpuscular Hemoglobin 24.3 PG (27.0-34.0) Mean Corpuscular Hemoglobin Concent 31.4 % (32.0-36.0) Red Cell Distribution Width 18.9 % (11.6-17.2) Neutrophils (%) (Auto) 73.0 % (16.0-70.0) Monocytes (%) (Auto) 9.2 % (0.0-8.0) Prothrombin Time 12.0 SEC (9.8-11.6) Creatinine 0.58 MG/DL (0.60-1.30) Total Protein 6.1 GM/DL (6.4-8.2) Albumin 2.6 GM/DL (3.4-5.0) Calcium Level 7.5 MG/DL (8.5-10.1) Alkaline Phosphatase 120 U/L (45-117) B-Type Natriuretic Peptide 191 PG/ML (0-100) Urine Turbidity HAZY (CLEAR) Urine Protein 30 mg/dL (NEG-TRACE) Urine Leukocyte Esterase TRACE (NEG) Urine Mucus MANY /lpf (OCC) Test 10/03/17 03:44 10/03/17 07:36 10/04/17 06:49 Red Blood Count 3.26 MIL/MM3 (4.50-5.90) 3.50 MIL/MM3 (4.50-5.90) Hemoglobin 8.3 GM/DL (13.0-17.0) 8.8 GM/DL (13.0-17.0) Hematocrit 25.4 % (39.0-51.0) 26.8 % (39.0-51.0) Mean Corpuscular Volume 77.9 FL (80.0-100.0) 76.7 FL (80.0-100.0) Mean Corpuscular Hemoglobin 25.3 PG (27.0-34.0) 25.2 PG (27.0-34.0) Red Cell Distribution Width 18.5 % (11.6-17.2) 19.1 % (11.6-17.2) Hepatitis C Antibody REACTIVE (NEGATIVE) Total Protein 6.2 GM/DL (6.4-8.2) Albumin 2.4 GM/DL (3.4-5.0) Calcium Level 7.5 MG/DL (8.5-10.1) Chloride Level 109 MEQ/L (98-107) Iron Level 14 MCG/DL (65-175) Total Iron Binding Capacity 522 MCG/DL (250-450) Percent Iron Saturation 2.7 % (20-50) Ferritin 11 NG/ML (26-388) Hospital Course Mr. Beard is a 52-year-old male. He has hepatitis C and is had alcohol abuse in the past. He has not drank alcohol for 9 months. He does admit to recent heroin abuse. Current abuse is related to opioid dependence and chronic pain. He is hoping to quit his use of heroin also. He was here secondary to bilateral lower extremity swelling. Some of this may be related to chronic liver disease and cirrhosis. Anemia was present to a severe degree with hemoglobin level 5.4. This degree of anemia could also be contributory to his lower extremity swelling. Patient had reported some previous episodes of GI bleeding. He was transfused and GI workup was performed. No findings for acute bleed or risk of acute bleed. His hemoglobin has improved with the transfusion then spontaneously status post transfusion. Imaging of the liver shows evidence of cirrhosis and moderate ascites. At this point he is stable for treatment which is Lasix and medically stable for discharge to home regarding his anemia. Discharge home today. Pt Condition on Discharge: Stable Discharge Disposition: Discharge Home Discharge Time: <= 30 minutes Discharge Instructions DIET: Follow Instructions for: As Tolerated, No Restrictions Activities you can perform: Regular-No Restrictions Follow up Referrals: PCP Follow-up - 2 Weeks New Medications: Furosemide (Furosemide) 20 Mg Tab 20 MG PO DAILY for Diuretic, #30 TAB Jhonny Alejandre MD Oct 04, 2017 16:30
[2017-10-05] MEDS ORDERED: FUROSEMIDE 20 MG TAB PO SCH (09:00)
== END 2017-10-04 14:50 | disposition home or self-care (01) | DRG 812 ==
LOC: NEPC 11:20 → NEDA 13:55 → INTOOBSV 13:55 → NEPFCDU 16:45 → OBSVTOIN 17:36 → N04A 23:54
PROVIDERS: ADMIT Hospitalist; ATTEND Hospitalist
PROC: 30233N1 Transfusion of Nonautologous Red Blood Cells into Peripheral Vein, Percutaneous Approach (ICD-10-PCS; principal; 2017-10-02)
PROC: 0DBN8ZZ Excision of Sigmoid Colon, Via Natural or Artificial Opening Endoscopic (ICD-10-PCS; 2017-10-03)
PROC: 0DBP8ZZ Excision of Rectum, Via Natural or Artificial Opening Endoscopic (ICD-10-PCS; 2017-10-03)
PROC: 0DB98ZX Excision of Duodenum, Via Natural or Artificial Opening Endoscopic, Diagnostic (ICD-10-PCS; 2017-10-03 10:30)
DX: D50.9 Iron deficiency anemia, unspecified (principal); R18.8 Other ascites; K74.60 Unspecified cirrhosis of liver; F11.23 Opioid dependence with withdrawal; J98.11 Atelectasis; R16.0 Hepatomegaly, not elsewhere classified; B18.2 Chronic viral hepatitis C; R63.4 Abnormal weight loss; D12.5 Benign neoplasm of sigmoid colon; K57.90 Diverticulosis of intestine, part unspecified, without perforation or abscess without bleeding; K62.1 Rectal polyp; F17.210 Nicotine dependence, cigarettes, uncomplicated; Z68.23 Body mass index [BMI] 23.0-23.9, adult
CPT/HCPCS: 36430; 71010; 74250; 76705; 80053; 80074; 81001; 82550; 82607; 82728; 82746; 83540; 83550; 83690; 83880; 84443; 85014; 85018; 85025; 85610; 85730; 86703; 86850; 86900; 86901; 86920; 88305; 93005; J1940; J2270; J7030; J7050; P9016

== ENCOUNTER 2018-05-31 05:31 | Inpatient (IN) ==
[2018-05-31] MEDS ORDERED: Pantoprazole Inj 80 MG in Sodium Chlor 0.9% Inj 50 ML IV.SIG ONE (05:36)
--- NOTE | 2018-05-31 06:08 | ED ---
[facility] General Chief complaint: GI Bleed Stated complaint: GI comaplint Time Seen by Provider: 05/31/18 05:36 Source: patient, EMS, RN notes reviewed and old records reviewed Mode of arrival: EMS History of Present Illness [facility] Narrative: Is a 53-year-old male presents emergency room with GI bleed. He reports that over the past day he said multiple episodes of dark black stool. He had a syncopal episode tonight. EMS found him on the floor with the pool of melena recovering from a syncopal episode. He reports a history of GI bleed. Review of records shows he was admitted with anemia and abdominal pain in September. He had an EGD and a colonoscopy that were overall pretty unremarkable. Is a history of hepatitis C, alcohol use. I cannot find any definite history of cirrhosis or varices. States he otherwise had been feeling well and healthy prior to the onset of these symptoms. EMS found him hypotensive, improved with some IV fluids. 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 SKIN: Mottled and cool, very pale. HEAD: Atraumatic. Normocephalic. EYES: Pupils equal and round. Pale conjunctiva. ENT: No nasal bleeding or discharge. Mucous membranes pink and moist. NECK: Trachea midline. No JVD. CARDIOVASCULAR: Regular rate and rhythm. No murmur appreciated. RESPIRATORY: No accessory muscle use. Clear to auscultation. Breath sounds equal bilaterally. GASTROINTESTINAL: Abdomen soft, non-tender, nondistended. Hepatic and splenic margins not palpable. MUSCULOSKELETAL: No obvious deformities. No edema. NEUROLOGICAL: Awake and alert. No obvious cranial nerve deficits. Motor grossly within normal limits. Normal speech. PSYCHIATRIC: Appropriate mood and affect; insight and judgment normal. Procedures Hemaprompt Stool Procedural Steps Taken: specimen placed in appropriate test area, developer placed on specimen and control areas and controls appropriately positive and negative Hemaprompt Stool Result: positive Course Initial Documented Vital Signs Temperature 98.7 F 05/31/18 05:32 Pulse Rate 80 05/31/18 05:32 Respiratory Rate 16 05/31/18 05:32 Blood Pressure 99/49 L 05/31/18 05:32 Pulse Oximetry 100 05/31/18 05:32 Last Documented Vital Signs Temperature 98.1 F 05/31/18 07:14 Pulse Rate 77 05/31/18 07:14 Respiratory Rate 17 05/31/18 07:14 Blood Pressure 105/55 L 05/31/18 07:14 Pulse Oximetry 100 05/31/18 05:46 Medical Decision Making [facility] Narrative Medical decision making narrative: 53-year-old male with history of liver disease presents emergency department with some hematemesis and copious melena. He looks ill. Hypotensive initially, still with borderline blood pressures in the 90s. Improved with some IV fluids. Have a cross for 6 units, transfuse 2, PPI bolus and drip, octreotide drip. We will plan on admission, likely ICU. GI consult. Lab Data Result diagrams: 05/31/18 05:50 05/31/18 05:50 Lab Results 05/31/18 05/31/18 05/31/18 Range/Units 05:50 05:50 05:50 WBC 7.2 (4.0-11.0) th/mm3 RBC 2.03 L (4.50-5.90) mil/mm3 Hgb 3.1 L* (13.0-17.0) gm/dL Hct 11.5 L* (39.0-51.0) % MCV 56.9 L (80.0-100.0) fL MCH 15.5 L (27.0-34.0) pg MCHC 27.3 L (32.0-36.0) % RDW 20.9 H (11.6-17.2) % Plt Count 143 L (150-450) th/mm3 MPV 8.4 (7.0-11.0) fL Prelim Diff (Auto) Web Site Project Manager Neut % (Auto) 64.2 (16.0-70.0) % Lymph % (Auto) 24.4 (9.0-44.0) % [place] % (Auto) 9.7 H (0.0-8.0) % Eos % (Auto) 0.5 (0.0-4.0) % Baso % (Auto) 1.2 (0.0-2.0) % Neut # (Auto) 4.6 (1.8-7.7) th/mm3 Lymph # (Auto) 1.8 (1.0-4.8) th/mm3 [place] # (Auto) 0.7 (0.0-0.9) th/mm3 Eos # (Auto) 0.0 (0.0-0.4) th/mm3 Baso # (Auto) 0.1 (0.0-0.2) th/mm3 WBC Differential . Differential Comment Auto diff final PT 16.2 H (9.8-11.6) sec INR 1.6 Ratio APTT 29.5 (24.3-30.1) sec Sodium 143 (136-145) meq/L Potassium 4.3 (3.5-5.1) meq/L Chloride 110 H (98-107) meq/L Carbon Dioxide 21.0 (21.0-32.0) meq/L Anion Gap 12 (5-15) meq/L BUN 22 H (7-18) mg/dL Creatinine 0.63 (0.60-1.30) mg/dL Estimated GFR Greater than 89 (>89) mL/min Random Glucose 83 (74-106) mg/dL Calcium 7.2 L* (8.5-10.1) mg/dL Prot Corrected Calcium 8.4 L (8.5-10.1) mg/dL Magnesium 1.8 (1.5-2.5) mg/dL Total Bilirubin 0.6 (0.2-1.0) mg/dL AST 26 (15-37) U/L ALT 16 (12-78) U/L Alkaline Phosphatase 50 (45-117) U/L Ammonia (11-32) mcmol/L Total Protein 4.9 L (6.4-8.2) g/dL Albumin 2.0 L (3.4-5.0) g/dL Serum Alcohol Less than 3 (0-5) mg/dL Blood Type Antibody Screen MTS Gel Crossmatch 05/31/18 05/31/18 Range/Units 05:50 05:50 WBC (4.0-11.0) th/mm3 RBC (4.50-5.90) mil/mm3 Hgb (13.0-17.0) gm/dL Hct (39.0-51.0) % MCV (80.0-100.0) fL MCH (27.0-34.0) pg MCHC (32.0-36.0) % RDW (11.6-17.2) % Plt Count (150-450) th/mm3 MPV (7.0-11.0) fL Prelim Diff (Auto) Neut % (Auto) (16.0-70.0) % Lymph % (Auto) (9.0-44.0) % [place] % (Auto) (0.0-8.0) % Eos % (Auto) (0.0-4.0) % Baso % (Auto) (0.0-2.0) % Neut # (Auto) (1.8-7.7) th/mm3 Lymph # (Auto) (1.0-4.8) th/mm3 [place] # (Auto) (0.0-0.9) th/mm3 Eos # (Auto) (0.0-0.4) th/mm3 Baso # (Auto) (0.0-0.2) th/mm3 WBC Differential Differential Comment PT (9.8-11.6) sec INR Ratio APTT (24.3-30.1) sec Sodium (136-145) meq/L Potassium (3.5-5.1) meq/L Chloride (98-107) meq/L Carbon Dioxide (21.0-32.0) meq/L Anion Gap (5-15) meq/L BUN (7-18) mg/dL Creatinine (0.60-1.30) mg/dL Estimated GFR (>89) mL/min Random Glucose (74-106) mg/dL Calcium (8.5-10.1) mg/dL Prot Corrected Calcium (8.5-10.1) mg/dL Magnesium (1.5-2.5) mg/dL Total Bilirubin (0.2-1.0) mg/dL AST (15-37) U/L ALT (12-78) U/L Alkaline Phosphatase (45-117) U/L Ammonia 70 H (11-32) mcmol/L Total Protein (6.4-8.2) g/dL Albumin (3.4-5.0) g/dL Serum Alcohol (0-5) mg/dL Blood Type O Positive Antibody Screen Negative MTS Gel Crossmatch See Detail Discharge Plan Discharge Disposition Patient Disposition: 30 Still Patient Physicians Team ED Provider: Juventino Lim Primary Care Provider: Primary Care Maggy Lopze Status ED Status: With Doctor
[2018-05-31 06:13] LABS: Baso # (Auto) 0.1 th/mm3 (0.0-0.2); Baso % (Auto) 1.2 % (0.0-2.0); Eos % (Auto) 0.5 % (0.0-4.0); Lymph # (Auto) 1.8 th/mm3 (1.0-4.8); Lymph % (Auto) 24.4 % (9.0-44.0); Mean Corpuscular Hemoglobin 15.5 pg (27.0-34.0); Mean Corpuscular Volume 56.9 fL (80.0-100.0); Mean Platelet Volume 8.4 fL (7.0-11.0); Mono # (Auto) 0.7 th/mm3 (0.0-0.9); Mono % (Auto) 9.7 % (0.0-8.0); Neut # (Auto) 4.6 th/mm3 (1.8-7.7); Neut % (Auto) 64.2 % (16.0-70.0); Platelet Count 143 th/mm3 (150-450); Red Blood Count 2.03 mil/mm3 (4.50-5.90); Red Cell Distribution Width 20.9 % (11.6-17.2); White Blood Count 7.2 th/mm3 (4.0-11.0)
[2018-05-31] MEDS: Pantoprazole Inj 80 MG in Sodium Chlor 0.9% Inj 100 ML IV.CONT SCH ×2 (06:18→20:17)
[2018-05-31] MEDS: Octreotide Inj 500 MCG in Sodium Chlor 0.9% Inj 500 ML IV.CONT SCH ×2 (06:18→17:26)
[2018-05-31 06:26] LABS: Alanine Aminotransferase 16 U/L (12-78); Alkaline Phosphatase 50 U/L (45-117); Anion Gap 12 meq/L (5-15); Aspartate Aminotransferase 26 U/L (15-37); Blood Urea Nitrogen 22 mg/dL (7-18); Calcium 7.2 mg/dL (8.5-10.1); Chloride 110 meq/L (98-107); Glomerular Filtration Rate Greater Than 89 mL/min (>89); Glucose,Random 83 mg/dL (74-106); Magnesium 1.8 mg/dL (1.5-2.5); Potassium 4.3 meq/L (3.5-5.1); Sodium 143 meq/L (136-145); Total Protein 4.9 g/dL (6.4-8.2)
[2018-05-31] MEDS ORDERED: Calcium Chloride Inj 2 GM in Sodium Chlor 0.9% Inj 100 ML IV.SIG ONE (06:28)
[2018-05-31 06:31] LABS: Activated Partial Thrombo Time 29.5 sec (24.3-30.1); INR 1.6 Ratio; Prothrombin Time 16.2 sec (9.8-11.6)
[2018-05-31 06:37] LABS: Mean Corpuscular HGB Conc 27.3 % (32.0-36.0)
[2018-05-31 06:38] LABS: Hematocrit 11.5 % (39.0-51.0); Hemoglobin 3.1 gm/dL (13.0-17.0)
[2018-05-31] MEDS ORDERED: Bisacodyl 10 MG Supp RECTAL PRN (07:17)
[2018-05-31] MEDS ORDERED: Phytonadione 5 MG/SWFI 5 ML Oral Syringe PO ONE (07:27)
--- NOTE | 2018-05-31 07:40 | P.HPCC ---
History of Present Illness Service: Critical care medicine Primary Care Physician: No Primary Care Physician Chief Complaint: Melena/syncope History of Present Illness: This is a 53-year-old male. Date of admission 05/31/2018. Past medical history includes previous admission with hemoglobin of 5.4, tubular adenoma, diverticulosis, microcytic anemia, hepatitis C untreated. 2017, patient was admitted received 2 units PRBCs. EGD was normal. Colonoscopy revealed diverticulosis and a colonic polyp which was biopsied. This revealed tubular adenoma. He will recover 8.4 and patient was discharged after small bowel series which was essentially normal. Today, this patient reports that over the past 24 hours he has had multiple episodes of dark black stool. He had a syncopal episode tonight. EMS found him on the floor with the pool of melena recovering from a syncopal episode. . States he otherwise had been feeling well only with food symptomatic chronic abdominal pain located below the umbilicus and involving the gastric region. EMS found him hypotensive, improved with some IV fluids Patient received 2 L normal saline total. Hemoglobin was 3.1. INR is 1.6. Ammonia was 70. He is currently being treated his 2 units PRBCs. He is placed on a pantoprazole drip at 8 mg an hour after receiving an 80 milligrams bolus and on octreotide drip at 50 mcg an hour. GI has been consulted for possible EGD/colonoscopy. We were asked to admit. Inpatient Certification: I certify that the inpatient services were ordered in accordance with Medicare regulations governing the order. This includes certification that hospital inpatient services are reasonable and necessary and in the case of services not specified as inpatient-only under 42 CFR 419.22(n), that they are appropriately provided as inpatient services in accordance to with the 2-midnight benchmark under 43 CFR 412.3(e) Estimated Total Length of Stay (Days): 3 Plans for Post Hospital Care: Not yet determined Review of Systems Constitutional: Reports fatigue, Denies anorexia, Denies body ache(s), Denies fever(s), Denies increased appetite, Denies weight gain, Denies weight loss Eyes: Denies blurry vision, Denies change in vision Ears, Nose, Mouth, and Throat: Reports abnormal hearing, Reports hearing loss, Reports poor balance, Denies headache(s), Denies nosebleed, Denies pain with swallowing Cardiovascular: Denies chest pain, Denies leg swelling, Denies shortness of breath Respiratory: Denies cough, Denies shortness of breath Gastrointestinal: Reports abdominal pain, Reports black, tarry stools, Reports change in bowel habits, Reports vomiting blood, Denies belching, Denies constipation Genitourinary: Denies decreased urination, Denies side pain Musculoskeletal: Denies back pain, Denies body aches, Denies joint swelling Skin/Breast: Denies boil, Denies new lesions Neurologic: Reports abnormal hearing, Reports abnormal walking, Denies abnormal movements, Denies abnormal speech Psychiatric: Reports anxiety, Reports irritability, Reports mood swings, Denies abnormal sleep pattern, Denies change in appetite, Denies memory loss Endocrine: Denies cold intolerance, Denies flushing, Denies rapid, pounding, or irregular heartbeat Hematologic/Lymphatic: Reports easy bleeding, Denies easy bruising Allergic/Immunologic: Denies GI upset with certain foods, Denies hives PMFSH - History History Provided By: Vessel Builder / EMT - Medical History Medical History: Medical History (Last Updated 05/31/18 @ 07:51 by Pan Jaime MD) Anemia Hepatitis C Tobacco abuse - Surgical History Surgical History: Surgical History (Last Updated 05/31/18 @ 07:51 by Pan Jaime MD) History of tonsillectomy - Family History Family History: Family History (Last Updated 05/31/18 @ 07:51 by Pan Jaime MD) Other Family history of diabetes mellitus - Tobacco History Second Hand Smoke Exposure: Yes Tobacco Use In Past 30 Days: Yes Smoking Status: Current every day smoker Tobacco Type: Cigarettes Packs Per Day: 1 Cigarettes Per Day: 20 Years Smoked: 30 - Alcohol History How Often Do You Have a Drink Containing Alcohol: Never - Substance Use History Substance History: Past History - Substance Use Type Heroin Status: Active Route Used: Intravenously Frequency: 2-3 times a day Reason for Use: Get High - Travel History History of Recent Travel: No Recent Travel in the [place] Within the Last 8 Weeks: No Recent Travel Out of the Country Within the Last 8 Weeks: No Medications and Allergies Active Medications: Active Medications Al Hydroxide/Mg Hydroxide (Milk Of Magnesia Liq) 30 ml PO Q12H PRN PRN Reason: Mild Constipation Albuterol (Albuterol Neb (Prn)) 2.5 mg NEB Q2HR NEB PRN PRN Reason: SHORTNESS OF BREATH/WHEEZING Albuterol (Duoneb Neb (Concepcion)) 1 ampul NEB Q4HR NEB PENDING SALE TO [facility] Bisacodyl (Dulcolax Supp) 10 mg RECTAL DAILY PRN PRN Reason: SEVERE CONSITIPATION Chlorhexidine Gluconate (Chlorhexidine 2% Cloth) 3 pack TOPICAL DAILY@0400 CONCEPCION Stop: 06/06/18 03:59 Chlorhexidine Gluconate (Chlorhexidine 2% Cloth) 3 pack TOPICAL DAILY@0400 PRN PRN Reason: Extra cloth needed Stop: 06/06/18 03:59 Octreotide Acetate 500 mcg/ (Sodium Chloride) 500.5 mls @ 50.05 mls/hr IV.CONT .Q10H CONCEPCION Last Admin: 05/31/18 06:18 Dose: 50 mcg/hr, 50.05 mls/hr Pantoprazole Sodium 80 mg/ (Sodium Chloride) 100 mls @ 10 mls/hr IV.CONT CONT CONCEPCION Last Admin: 05/31/18 06:18 Dose: 10 mls/hr Sodium Chloride (Ns Inj) 1,000 mls @ 84 mls/hr IV.CONT .[id number] CONCEPCION Acetaminophen (Ofirmev Inj) 1,000 mg in 100 mls @ 400 mls/hr IV.SIG Q8H PRN PRN Reason: PAIN 1-10 OR TEMP > 100.4 F Lactulose (Lactulose Liq) 30 ml PO DAILY PRN PRN Reason: SEVERE CONSITIPATION Lactulose (Lactulose Liq) 30 ml PO BID PENDING SALE TO [facility] Morphine Sulfate (Morphine Inj) 2 mg IV.PUSH Q2H PRN PRN Reason: BREAKTHROUGH PAIN Ondansetron HCl (Zofran Inj) 4 mg IV.PUSH Q6H PRN PRN Reason: NAUSEA OR VOMITING Phytonadione (Mephyton Liq) 5 mg PO ONCE ONE Stop: 05/31/18 07:28 Rifaximin (Xifaxan) 550 mg PO Q12HR PENDING SALE TO [facility] Senna/Docusate Sodium (Lou-Colace) 1 tab PO BID PENDING SALE TO [facility] Sennosides (Senokot) 17.2 mg PO Q12H PRN PRN Reason: Moderate Constipation Sodium Chloride (Ns Flush) 2 ml IV.FLUSH PRN PRN PRN Reason: FLUSH AFTER USING IV ACCESS Sodium Chloride (Ns Flush) 2 ml IV.FLUSH BID CONCEPCION Allergies Allergy/AdvReac Type Severity Reaction Status Date / Time No Known Allergies Allergy Verified 05/31/18 05:39 Home Medications Medication Instructions Recorded Confirmed Type No Known Home Medications 05/31/18 05/31/18 History Results - Labs CBC & Chem 7: 05/31/18 05:50 05/31/18 05:50 Labs: Short CBC 05/31/18 Range/Units 05:50 WBC 7.2 (4.0-11.0) th/mm3 Hgb 3.1 L* (13.0-17.0) gm/dL Hct 11.5 L* (39.0-51.0) % Plt Count 143 L (150-450) th/mm3 BMP 05/31/18 05:50 Sodium 143 Potassium 4.3 Chloride 110 H Carbon Dioxide 21.0 BUN 22 H Creatinine 0.63 Calcium 7.2 L* Liver Function 05/31/18 Range/Units 05:50 Total Bilirubin 0.6 (0.2-1.0) mg/dL AST 26 (15-37) U/L ALT 16 (12-78) U/L Alkaline Phosphatase 50 (45-117) U/L Albumin 2.0 L (3.4-5.0) g/dL - Imaging Liver Ultrasound 05/31/18 00:00 CONCLUSION: 1. Cirrhosis of the liver without visible mass. 2. Significant wall thickening present within the gallbladder without visible stones. The wall thickening may be secondary to the patient's cirrhosis and ascites versus acalculous cholecystitis. This wall thickening was seen previously therefore suspected secondary to cirrhosis. 3. Splenomegaly. Moderate ascites. Chest X-Ray 05/31/18 07:19 CONCLUSION: Negative examination. Exam Vital signs: Vital Signs 05/31/18 05:32 05/31/18 05:46 05/31/18 06:01 Temperature 98.7 F Pulse Rate 80 75 Respiratory Rate 16 Blood Pressure 99/49 L Pulse Oximetry 100 100 05/31/18 07:14 05/31/18 07:18 05/31/18 07:30 Temperature 98.1 F 98.1 F 97.4 F L Pulse Rate 77 75 74 Respiratory Rate 17 17 17 Blood Pressure 105/55 L 104/56 L 108/59 L Pulse Oximetry 100 100 Intake & Output 0705/31/18 05/31/18 18:59 06:59 18:59 Intake Total 0 / 0 Balance 0 / 0 Weight 71.668 kg Intake: Intake (Blood Product) Amt 0 / 0 Rbc As-3 Leukoreduced Unit 0 / 0 [id number] Rbc As-3 Leukoreduced Unit 0 / 0 [id number] Other: Date of Last Bowel Movement 05/31/18 - Constitutional mild distress, average body habitus, thin, chronically ill appearing, somnolent - Routine HEENT Exam Head: Present: normocephalic, atraumatic. Absent: tenderness of temporal artery , facial swelling Eye: Present: EOMI, PERRL, conjunctivae pink. Absent: nystagmus ENT: Present: mucous membranes dry, oropharynx clear. Absent: sinus tenderness - Routine Neck Exam Present: supple, full ROM. Absent: JVD, carotid bruit - Routine Chest/Breast/Axilla Exam Chest wall: Absent: tenderness Breast: Absent: tenderness Axillae: Absent: lymphadenopathy - Routine Respiratory Exam Present: CTA bilaterally. Absent: accessory muscle use, rhonchi, stridor, wheezes, crackles, distant breath sounds - Routine Cardiovascular Exam Present: RRR, S1, S2. Absent: murmur, gallop, rubs - Routine Abdominal Exam Present: soft, tenderness, guarding. Absent: distended, rebound, rigid, hernia , wound Comments: Suprapubic and gastric tenderness noted - Routine Extremities Exam Absent: cyanosis, clubbing, edema - Routine Skin Exam Present: intact, dry. Absent: cyanosis, jaundice - Routine Neurological Exam Present: oriented X3, CN II-XII intact. Absent: sensory deficit, motor deficit Caprini VTE Risk Assessment Caprini VTE Risk Assessment: No/Low Risk (score <= 1) VTE Pharmacological Exception Reason: Hemorrhage Caprini Risk Assessment Model: Point Value = 1 Point Value = 2 Point Value = 3 Point Value = 5 Age 41-60 Minor surgery BMI > 25 kg/m2 Swollen legs Varicose veins or History of unexplained or recurrent spontaneous Oral contraceptives or hormone replacement Sepsis (< 1 month) Serious lung disease, including pneumonia (< 1 month) Abnormal pulmonary function Acute myocardial infarction Congestive heart failure (< 1 month) History of inflammatory bowel disease Medical patient at bed rest Age 61-74 Arthroscopic surgery Major open surgery (> 45 min) Laparoscopic surgery (> 45 min) Malignancy Confined to bed (> 72 hours) Immobilizing plaster cast Central venous access Age >= 75 History of VTE Family history of VTE Factor V Leiden Prothrombin [id number] Lupus anticoagulant Anticardiolipin antibodies Elevated serum homocysteine Heparin-induced thrombocytopenia Other congenital or acquired thrombophilia Stroke (< 1 month) Elective arthroplasty Hip, pelvis, or leg fracture Acute spinal cord injury (< 1 month) Prophylaxis Regimen: Total Risk Factor Score Risk Level Prophylaxis Regimen 0-1 Low Early ambulation 2 Moderate Order ONE of the following: *Sequential Compression Device (SCD) *Heparin 5000 units SQ BID 3-4 Higher Order ONE of the following medications: *Heparin 5000 units SQ TID *Enoxaparin/Lovenox 40 mg SQ daily (WT < 150 kg, CrCl > 30 mL/min) *Enoxaparin/Lovenox 30 mg SQ daily (WT < 150 kg, CrCl > 10-29 mL/min) *Enoxaparin/Lovenox 30 mg SQ BID (WT < 150 kg, CrCl > 30 mL/min) AND/OR *Sequential Compression Device (SCD) 5 or more Highest Order ONE of the following medications: *Heparin 5000 units SQ TID (Preferred with Epidurals) *Enoxaparin/Lovenox 40 mg SQ daily (WT < 150 kg, CrCl > 30 mL/min) *Enoxaparin/Lovenox 30 mg SQ daily (WT < 150 kg, CrCl > 10-29 mL/min) *Enoxaparin/Lovenox 30 mg SQ BID (WT < 150 kg, CrCl > 30 mL/min) AND *Sequential Compression Device (SCD) Assessment and Plan - Assessment and Plan Plan: Neuro/Psych: Polysubstance abuse including heroin History of EtOH abuse Acetaminophen 1 g IV every 8 hours as needed fever/pain 1 through 10 Morphine sulfate 2 mg IV every 2 hours as needed breakthrough pain Denies current EtOH abuse. We will give thiamine 100 mg IV daily CV: Currently normal saline at 84 cc an hour Not requiring vasopressors and/or antihypertensives Lactic acid ordered Resp: Ongoing tobaccoism Nasal cannula to maintain saturations greater than or equal to 92% Incentive spirometry while awake Follow-up on chest x-ray Albuterol/ipratropium aerosols every 4 hours with albuterol aerosols every 2 hours as needed for dyspnea Tobacco cessation self-evaluation booklet will be provided when appropriate GI: History of tubular adenoma Colonic diverticulosis Melena/coffee-ground emesis Hyperammonia Hypoalbuminemia Hepatitis C antibody positive Patient is currently on a pantoprazole drip at 8 mg an hour and octreotide drip at 50 mcg an hour Negative/normal EGD 2016 with colonic diverticulosis/tubular adenoma. Negative small bowel series. GI consultation for possible endoscopy Lactulose 30 cc twice daily/Xifaxan 550 twice daily. Liver ultrasound ordered Hepatitis C genotype and viral load ordered Check amylase and lipase. : No indication for Bello catheter Endo: Sliding scale insulin Accu-Cheks every 6 hours to maintain euglycemia/aspart low regimen Check TSH in a.m. Renal: Creatinine currently within normal limits Monitor urine output Accurate I's and O's Heme: Acute microcytic anemia Thrombocytopenia Elevated INR Transfuse 2 PRBCs, 1 FFP. Now stat. Recheck coags in a.m. Vitamin K 5 milligrams 1 now Serial hemoglobins every 6 hours. Iron studies/ferritin/transferrin and reticulocyte count ordered. Peripheral smear ordered. ID: Ceftriaxone 1 g IV daily with upper GI bleed Monitor for signs of hematology infection MSK: PT evaluate and treat FEN: Replace electrolytes as clinically indicated. Receiving 2 grams mag sulfate IV 1 now. Receiving calcium chloride 1 now. Access -Utilize peripheral IV. Central line if indicated Prophylaxis -GI -pantoprazole drip -DVT -SCD/pharmacological prophylaxis contraindicated with active hemorrhage/GI bleed Level 3 admission Code Status: Full code Discussed Condition With: Dr. Lim/ED physician. Patient. Care plan discussed and all questions answered .
--- NOTE | 2018-05-31 08:00 | XR ---
EXAM DATE: 05/31/2018 7:53 AM EDT AGE/SEX: 53 years / Male INDICATIONS: Short of breath. CLINICAL DATA: This is the patient's initial encounter. Patient reports that signs and symptoms have been present for 1 day and indicates a pain score of 0/10. MEDICAL/SURGICAL HISTORY: . Hepatitis C. ETOH abuse. . Tonsillectomy. COMPARISON: [facility] [place]ST SINGLE AP, 10/02/2017. . FINDINGS: AP upright portable view of the chest demonstrates improved aeration of the lungs as compared to the previous exam. The lungs are currently well-inflated and clear. Heart size appears grossly normal to possibly mildly enlarged. Pulmonary vasculature is normal. Osseous structures are intact. CONCLUSION: Negative examination. Electronically signed by: Le Fortune MD 05/31/2018 7:58 AM EDT
[2018-05-31] MEDS ORDERED: Dextrose 50% in Water 50 ML Vial IV.PUSH PRN (08:03)
[2018-05-31] MEDS ORDERED: Magnesium Sulfate Inj 2 GM in Sodium Chlor 0.9% Inj 96 ML IV.SIG ONE (08:05)
[2018-05-31] MEDS ORDERED: Calcium Chloride Inj 0.5 GM in Sodium Chlor 0.9% Inj 100 ML IV.SIG ONE (08:05)
--- NOTE | 2018-05-31 09:04 | P.CONGI ---
History of Present Illness Consult date: 05/31/18 Consult reason: GIB, cirrhosis Chief complaint: GI bleed, profound anemia History of Present Illness: This is a 53 yo M with PMH significant for cirrhosis, current IV drug abuse, treatment naive Hepatitis C, and history of GIB who presented to the ER early this morning after EMS responded to his home and found him passed out on the floor in a pool of melena. Pt reports he was in his usual state of health until two days ago when he began having epigastric pain and he states a taste in his throat of blood. Pt reports this morning he had two episodes of melena, when he was on his way back from the bathroom he passed out and his called 911. Pt has been previously seen by our service for complaints of melena, EGD and colonoscopy in September 2017 --> Normal EGD, diverticulosis, and colon polyps which pathology revealed tubular adenomas. Pt also had a SBFT which was unremarkable. He reports he did not follow up in our office after DC. Pt with known Hepatitis C, history of tattoos not done in parlors as well as current heroin use. Pt reports he quit drinking alcohol a year and a half ago. <Tomeka Welch - Last Filed: 05/31/18 08:51> Review of Systems Constitutional: Reports weakness Gastrointestinal: Reports abdominal pain, Reports black, tarry stools, Reports incontinent of stools, Reports loose stools, Denies nausea, Denies vomiting, Denies vomiting blood <Tomeka Welch - Last Filed: 05/31/18 08:51> [facility] - History History Provided By: Accreditation Coordinator / EMT - Medical History Medical History: Medical History (Last Updated 05/31/18 @ 07:51 by Pan Jaime MD) Anemia Hepatitis C Tobacco abuse - Surgical History Surgical History: Surgical History (Last Updated 05/31/18 @ 07:51 by Pan Jaime MD) History of tonsillectomy - Family History Family History: Family History (Last Updated 05/31/18 @ 07:51 by Pan Jaime MD) Other Family history of diabetes mellitus - Tobacco History Second Hand Smoke Exposure: Yes Tobacco Use In Past 30 Days: Yes Smoking Status: Current every day smoker Tobacco Type: Cigarettes Packs Per Day: 1 Years Smoked: 30 - Alcohol History How Often Do You Have a Drink Containing Alcohol: Never - Substance Use History Substance History: Past History - Substance Use Type Heroin Status: Active Route Used: Intravenously Frequency: 2-3 times a day - Travel History Recent Travel in the [place] Within the Last 8 Weeks: No Recent Travel Out of the Country Within the Last 8 Weeks: No - Immunization History Tetanus Immunization: <5 Years Hx Influenza Vaccine This Season: No <StephanieTomeka lowe - Last Filed: 05/31/18 08:51> - Medical History Medical History: Medical History (Last Updated 05/31/18 @ 07:51 by Pan Jaime MD) Anemia Hepatitis C Tobacco abuse - Surgical History Surgical History: Surgical History (Last Updated 05/31/18 @ 07:51 by Pan Jaime MD) History of tonsillectomy - Family History Family History: Family History (Last Updated 05/31/18 @ 07:51 by Pan Jaime MD) Other Family history of diabetes mellitus <Toshia Hughes - Last Filed: 05/31/18 14:11> Medications and Allergies Active Medications: Active Medications Al Hydroxide/Mg Hydroxide (Milk Of Miguel Mckeon) 30 ml PO Q12H PRN PRN Reason: Mild Constipation Albuterol (Albuterol Neb (Prn)) 2.5 mg NEB Q2HR NEB PRN PRN Reason: SHORTNESS OF BREATH/WHEEZING Albuterol (Duoneb Neb (Concepcion)) 1 ampul NEB Q4HR NEB CONCEPCION Last Admin: 05/31/18 07:51 Dose: 1 ampul Bisacodyl (Dulcolax Supp) 10 mg RECTAL DAILY PRN PRN Reason: SEVERE CONSITIPATION Chlorhexidine Gluconate (Chlorhexidine 2% Cloth) 3 pack TOPICAL DAILY@0400 CON[facility]ION Stop: 06/06/18 03:59 Chlorhexidine Gluconate (Chlorhexidine 2% Cloth) 3 pack TOPICAL DAILY@0400 PRN PRN Reason: Extra cloth needed Stop: 06/06/18 03:59 Dextrose (D50w Vial) 50 ml IV.PUSH UNSCH PRN PRN Reason: PER HYPOGLYCEMIA PROTOCOL Glucagon (Glucagon Inj) 1 mg OTHER PRN PRN PRN Reason: for Hypoglycemia Protocol Octreotide Acetate 500 mcg/ (Sodium Chloride) 500.5 mls @ 50.05 mls/hr IV.CONT .Q10H [facility]PC[facility] Last Admin: 07/15/18 06:18 Dose: 50 mcg/hr, 50.05 mls/hr Pantoprazole Sodium 80 mg/ (Sodium Chloride) 100 mls @ 10 mls/hr IV.CONT CONT [facility] Last Admin: 05/31/18 06:18 Dose: 10 mls/hr Sodium Chloride (Ns Inj) 1,000 mls @ 84 mls/hr IV.CONT .[id number] CONCEPCION Acetaminophen (Ofirmev Inj) 1,000 mg in 100 mls @ 400 mls/hr IV.SIG Q8H PRN PRN Reason: PAIN 1-10 OR TEMP > 100.4 F Ceftriaxone Sodium 1,000 mg/ (Sodium Chloride) 100 mls @ 200 mls/hr IV.SIG Q24H [facility] Magnesium Sulfate/Dextrose (Magnesium Sulfate 1 Gm/D5w 100 Ml Premix) 100 mls @ 100 mls/hr IV.SIG Q1H [facility]PC[facility] Stop: 05/31/18 10:29 Insulin Aspart (Novolog Insulin Suppl Scale Inj) 0 unit SQ Q6HR [facility]; Protocol Lactulose (Lactulose Liq) 30 ml PO DAILY PRN PRN Reason: SEVERE CONSITIPATION Lactulose (Lactulose Liq) 30 ml PO BID [facility] Morphine Sulfate (Morphine Inj) 2 mg IV.PUSH Q2H PRN PRN Reason: BREAKTHROUGH PAIN Ondansetron HCl (Zofran Inj) 4 mg IV.PUSH Q6H PRN PRN Reason: NAUSEA OR VOMITING Rifaximin (Xifaxan) 550 mg PO Q12HR [facility] Senna/Docusate Sodium (Lou-Colace) 1 tab PO BID [facility] Sennosides (Senokot) 17.2 mg PO Q12H PRN PRN Reason: Moderate Constipation Sodium Chloride (Ns Flush) 2 ml IV.FLUSH PRN PRN PRN Reason: FLUSH AFTER USING IV ACCESS Sodium Chloride (Ns Flush) 2 ml IV.FLUSH BID [facility] <Tomeka Welch - Last Filed: 05/31/18 08:51> Active Medications: Active Medications Al Hydroxide/Mg Hydroxide (Milk Of Magnesia Liq) 30 ml PO Q12H PRN PRN Reason: Mild Constipation Albuterol (Albuterol Neb (Prn)) 2.5 mg NEB Q2HR NEB PRN PRN Reason: SHORTNESS OF BREATH/WHEEZING Albuterol (Duoneb Neb (Concepcion)) 1 ampul NEB Q4HR NEB CONCEPCION Last Admin: 05/31/18 12:12 Dose: 1 ampul Bisacodyl (Dulcolax Supp) 10 mg RECTAL DAILY PRN PRN Reason: SEVERE CONSITIPATION Chlorhexidine Gluconate (Chlorhexidine 2% Cloth) 3 pack TOPICAL DAILY@0400 CONCEPCION Stop: 06/06/18 03:59 Chlorhexidine Gluconate (Chlorhexidine 2% Cloth) 3 pack TOPICAL DAILY@0400 PRN PRN Reason: Extra cloth needed Stop: 06/06/18 03:59 Dextrose (D50w Vial) 50 ml IV.PUSH UNSCH PRN PRN Reason: PER HYPOGLYCEMIA PROTOCOL Glucagon (Glucagon Inj) 1 mg OTHER PRN PRN PRN Reason: for Hypoglycemia Protocol Octreotide Acetate 500 mcg/ (Sodium Chloride) 500.5 mls @ 50.05 mls/hr IV.CONT .Q10H [facility] Last Admin: 05/31/18 06:18 Dose: 50 mcg/hr, 50.05 mls/hr Pantoprazole Sodium 80 mg/ (Sodium Chloride) 100 mls @ 10 mls/hr IV.CONT CONT [facility] Last Admin: 05/31/18 06:18 Dose: 10 mls/hr Sodium Chloride (Ns Inj) 1,000 mls @ 84 mls/hr IV.CONT .[id number] [facility] Acetaminophen (Ofirmev Inj) 1,000 mg in 100 mls @ 400 mls/hr IV.SIG Q8H PRN PRN Reason: PAIN 1-10 OR TEMP > 100.4 F Ceftriaxone Sodium 1,000 mg/ (Sodium Chloride) 100 mls @ 200 mls/hr IV.SIG Q24H [facility] Multivitamins 10 ml/ Thiamine HCl 100 mg/ Folic Acid 1 mg/Sodium Chloride 511.2 mls @ 125 mls/hr IV.SIG Q24H CON[facility]PC[facility] Stop: 06/02/18 13:04 Last Admin: 05/31/18 10:43 Dose: 125 mls/hr Insulin Aspart (Novolog Insulin Suppl Scale Inj) 0 unit SQ Q6HR [facility]; Protocol Lactulose (Lactulose Liq) 30 ml PO DAILY PRN PRN Reason: SEVERE CONSITIPATION Last Admin: 05/31/18 10:56 Dose: 30 ml Lactulose (Lactulose Liq) 30 ml PO BID [facility] Morphine Sulfate (Morphine Inj) 2 mg IV.PUSH Q2H PRN PRN Reason: BREAKTHROUGH PAIN Ondansetron HCl (Zofran Inj) 4 mg IV.PUSH Q6H PRN PRN Reason: NAUSEA OR VOMITING Rifaximin (Xifaxan) 550 mg PO Q12HR [facility] Last Admin: 05/31/18 10:56 Dose: 550 mg Senna/Docusate Sodium (Lou-Colace) 1 tab PO BID [facility] Last Admin: 05/31/18 10:56 Dose: 1 tab Sennosides (Senokot) 17.2 mg PO Q12H PRN PRN Reason: Moderate Constipation Sodium Chloride (Ns Flush) 2 ml IV.FLUSH PRN PRN PRN Reason: FLUSH AFTER USING IV ACCESS Sodium Chloride (Ns Flush) 2 ml IV.FLUSH BID [facility] <Toshia Hughes A - Last Filed: 05/31/18 14:11> Allergies Allergy/AdvReac Type Severity Reaction Status Date / Time No Known Allergies Allergy Verified 05/31/18 05:39 Home Medications Medication Instructions Recorded Confirmed Type No Known Home Medications 05/31/18 05/31/18 History Exam Vital signs: Vital Signs 05/31/18 05:32 05/31/18 05:46 05/31/18 06:01 Temperature 98.7 F Pulse Rate 80 75 Respiratory Rate 16 Blood Pressure 99/49 L Pulse Oximetry 100 100 05/31/18 07:14 05/31/18 07:18 05/31/18 07:30 Temperature 98.1 F 98.1 F 97.4 F L Pulse Rate 77 75 74 Respiratory Rate 17 17 17 Blood Pressure 105/55 L 104/56 L 108/59 L Pulse Oximetry 100 100 05/31/18 07:34 05/31/18 07:36 05/31/18 07:55 Temperature 97.8 F Pulse Rate 72 70 Respiratory Rate 18 19 Blood Pressure 116/58 L Pulse Oximetry 100 100 05/31/18 07:57 05/31/18 08:03 05/31/18 08:25 Temperature 97.9 F 97.9 F 98 F Pulse Rate 69 72 71 Respiratory Rate 17 16 18 Blood Pressure 115/63 108/55 L 113/58 L Pulse Oximetry 100 99 05/31/18 08:36 Temperature 97.7 F Pulse Rate 70 Respiratory Rate 18 Blood Pressure 115/58 L Pulse Oximetry 99 Intake & Output 05/30/18 05/31/18 05/31/18 18:59 06:59 18:59 Intake Total 1200 / 1200 Output Total 350 / 350 Balance 850 / 850 Weight 71.668 kg Intake: Other 400 / 400 Rbc As-3 Leukoreduced Unit 400 / 400 [id number] Intake (Blood Product) Amt 800 / 800 Plasma Thawed 5 Day Cp2d Unit 0 / 0 [id number] Rbc As-3 Leukoreduced Unit 400 / 400 [id number] Rbc As-3 Leukoreduced Unit 0 / 0 [id number] Rbc As-3 Leukoreduced Unit 400 / 400 [id number] Output: Urine 350 / 350 Other: Date of Last Bowel Movement 05/31/18 - Constitutional no acute distress - Routine HEENT Exam Head: Present: normocephalic, atraumatic - Routine Respiratory Exam Absent: accessory muscle use - Routine Cardiovascular Exam Present: RRR - Routine Abdominal Exam Present: soft, normoactive bowel sounds, tenderness (epigastric tenderness ). Absent: distended, rebound, guarding, firm - Routine Skin Exam Present: dry, warm - Routine Neurological Exam Present: alert, oriented X3 <Tomeka Welch - Last Filed: 05/31/18 08:51> Vital signs: Vital Signs 05/31/18 05:32 05/31/18 05:46 05/31/18 06:01 Temperature 98.7 F Pulse Rate 80 75 Respiratory Rate 16 Blood Pressure 99/49 L Pulse Oximetry 100 100 05/31/18 07:14 05/31/18 07:18 05/31/18 07:30 Temperature 98.1 F 98.1 F 97.4 F L Pulse Rate 77 75 74 Respiratory Rate 17 17 17 Blood Pressure 105/55 L 104/56 L 108/59 L Pulse Oximetry 100 100 05/31/18 07:34 05/31/18 07:36 05/31/18 07:55 Temperature 97.8 F Pulse Rate 72 70 Respiratory Rate 18 19 Blood Pressure 116/58 L Pulse Oximetry 100 100 05/31/18 07:57 05/31/18 08:03 05/31/18 08:25 Temperature 97.9 F 97.9 F 98 F Pulse Rate 69 72 71 Respiratory Rate 17 16 18 Blood Pressure 115/63 108/55 L 113/58 L Pulse Oximetry 100 99 05/31/18 08:36 05/31/18 08:45 05/31/18 08:57 Temperature 97.7 F 97.9 F 97.9 F Pulse Rate 70 66 66 Respiratory Rate 18 18 18 Blood Pressure 115/58 L 123/65 131/67 Pulse Oximetry 99 100 05/31/18 09:08 05/31/18 10:00 05/31/18 12:13 Temperature 97.6 F Pulse Rate 69 75 63 Respiratory Rate 18 12 Blood Pressure 124/64 Pulse Oximetry 100 Intake & Output 05/30/18 05/31/18 05/31/18 18:59 06:59 18:59 Intake Total 2438 / 243 Output Total 350 / 350 Balance 2088 Weight 71.668 kg Intake: IV 120 / 120 Calcium Chloride Inj 2 GM In NS 120 / 120 Inj 100 ML @ 120 mls/hr IV.SIG ONCE ONE Rx#:[id number] Other 400 / 400 Rbc As-3 Leukoreduced Unit 400 / 400 [id number] Intake (Blood Product) Amt 1918 Plasma Thawed 5 Day Cp2d Unit 319 / 319 [id number] Rbc As-3 Leukoreduced Unit 400 / 400 [id number] Rbc As-3 Leukoreduced Unit 400 / 400 [id number] Rbc As-3 Leukoreduced Unit 400 / 400 [id number] Rbc As-3 Leukoreduced Unit 400 / 400 [id number] Output: Urine 350 / 350 Other: Date of Last Bowel Movement 05/31/18 05/31/18 <Toshia Hughes A - Last Filed: 05/31/18 14:11> Results - Labs CBC & Chem 7: 05/31/18 05:50 05/31/18 05:50 Labs: Laboratory Results - last 24 hr 05/31/18 05/31/18 05/31/18 05:50 05:50 05:50 WBC 7.2 RBC 2.03 L Hgb 3.1 L* Hct 11.5 L* MCV 56.9 L MCH 15.5 L MCHC 27.3 L RDW 20.9 H Plt Count 143 L MPV 8.4 Prelim Diff (Auto) Mechanical Product Design Engineer Neut % (Auto) 64.2 Lymph % (Auto) 24.4 [place] % (Auto) 9.7 H Eos % (Auto) 0.5 Baso % (Auto) 1.2 Neut # (Auto) 4.6 Lymph # (Auto) 1.8 [place] # (Auto) 0.7 Eos # (Auto) 0.0 Baso # (Auto) 0.1 WBC Differential . Differential Comment Auto diff final PT 16.2 H INR 1.6 APTT 29.5 Sodium 143 Potassium 4.3 Chloride 110 H Carbon Dioxide 21.0 Anion Gap 12 BUN 22 H Creatinine 0.63 Estimated GFR Greater than 89 POC Glucose Random Glucose 83 Calcium 7.2 L* Prot Corrected Calcium 8.4 L Magnesium 1.8 Total Bilirubin 0.6 AST 26 ALT 16 Alkaline Phosphatase 50 Ammonia Total Protein 4.9 L Albumin 2.0 L Serum Alcohol Less than 3 Blood Type Antibody Screen [employer] Blood Bank Comment 05/31/18 05/31/18 05/31/18 05:50 05:50 07:27 WBC RBC Hgb Hct MCV MCH MCHC RDW Plt Count MPV Prelim Diff (Auto) Neut % (Auto) Lymph % (Auto) [place] % (Auto) Eos % (Auto) Baso % (Auto) Neut # (Auto) Lymph # (Auto) [place] # (Auto) Eos # (Auto) Baso # (Auto) WBC Differential Differential Comment PT INR APTT Sodium Potassium Chloride Carbon Dioxide Anion Gap BUN Creatinine Estimated GFR POC Glucose Random Glucose Calcium Prot Corrected Calcium Magnesium Total Bilirubin AST ALT Alkaline Phosphatase Ammonia 70 H Total Protein Albumin Serum Alcohol Blood Type O Positive Antibody Screen Negative MTS Gel Crossmatch See Detail Blood Bank Comment 05/31/18 08:22 WBC RBC Hgb Hct MCV MCH MCHC RDW Plt Count MPV Prelim Diff (Auto) Neut % (Auto) Lymph % (Auto) [place] % (Auto) Eos % (Auto) Baso % (Auto) Neut # (Auto) Lymph # (Auto) [place] # (Auto) Eos # (Auto) Baso # (Auto) WBC Differential Differential Comment PT INR APTT Sodium Potassium Chloride Carbon Dioxide Anion Gap BUN Creatinine Estimated GFR POC Glucose 95 Random Glucose Calcium Prot Corrected Calcium Magnesium Total Bilirubin AST ALT Alkaline Phosphatase Ammonia Total Protein Albumin Serum Alcohol Blood Type Antibody Screen [employer] [facility] Blood Bank Comment - Imaging Impressions Chest X-Ray 05/31/18 07:19 CONCLUSION: Negative examination. <Tomeka Welch - Last Filed: 05/31/18 08:51> - Labs CBC & Chem 7: 05/31/18 13:21 05/31/18 13:21 Labs: Laboratory Results - last 24 hr 05/31/18 05/31/18 05/31/18 05:50 05:50 05:50 WBC 7.2 RBC 2.03 L Hgb 3.1 L* Hct 11.5 L* MCV 56.9 L MCH 15.5 L MCHC 27.3 L RDW 20.9 H Plt Count 143 L MPV 8.4 Prelim Diff (Auto) Mechanical Product Design Engineer Neut % (Auto) 64.2 Lymph % (Auto) 24.4 [place] % (Auto) 9.7 H Eos % (Auto) 0.5 Baso % (Auto) 1.2 Neut # (Auto) 4.6 Lymph # (Auto) 1.8 [place] # (Auto) 0.7 Eos # (Auto) 0.0 Baso # (Auto) 0.1 WBC Differential . Differential Comment Auto diff final Retic Count Absolute Retic PT 16.2 H INR 1.6 APTT 29.5 Sodium 143 Potassium 4.3 Chloride 110 H Carbon Dioxide 21.0 Anion Gap 12 BUN 22 H Creatinine 0.63 Estimated GFR Greater than 89 POC Glucose Random Glucose 83 Lactic Acid Calcium 7.2 L* Prot Corrected Calcium 8.4 L Magnesium 1.8 Ferritin Total Bilirubin 0.6 AST 26 ALT 16 Alkaline Phosphatase 50 Ammonia Total Protein 4.9 L Albumin 2.0 L Amylase Lipase Serum Alcohol Less than 3 Blood Type Antibody Screen [facility] Blood Bank Comment 05/31/18 05/31/18 05/31/18 05:50 05:50 05:50 WBC RBC Hgb Hct MCV MCH MCHC RDW Plt Count MPV Prelim Diff (Auto) Neut % (Auto) Lymph % (Auto) [place] % (Auto) Eos % (Auto) Baso % (Auto) Neut # (Auto) Lymph # (Auto) [place] # (Auto) Eos # (Auto) Baso # (Auto) WBC Differential Differential Comment Retic Count 3.3 H Absolute Retic 65.1 PT INR APTT Sodium Potassium Chloride Carbon Dioxide Anion Gap BUN Creatinine Estimated GFR POC Glucose Random Glucose Lactic Acid Calcium Prot Corrected Calcium Magnesium Ferritin Total Bilirubin AST ALT Alkaline Phosphatase Ammonia 70 H Total Protein Albumin Amylase Lipase Serum Alcohol Blood Type O Positive Antibody Screen Negative MTS Gel [employer] See Detail Blood Bank Comment 05/31/18 05/31/18 05/31/18 07:27 08:22 13:21 WBC RBC Hgb 7.1 L D Hct 21.8 L MCV MCH MCHC RDW Plt Count MPV Prelim Diff (Auto) Neut % (Auto) Lymph % (Auto) [place] % (Auto) Eos % (Auto) Baso % (Auto) Neut # (Auto) Lymph # (Auto) [place] # (Auto) Eos # (Auto) Baso # (Auto) WBC Differential Differential Comment Retic Count Absolute Retic PT INR APTT Sodium Potassium Chloride Carbon Dioxide Anion Gap BUN Creatinine Estimated GFR POC Glucose 95 Random Glucose Lactic Acid Calcium Prot Corrected Calcium Magnesium Ferritin Total Bilirubin AST ALT Alkaline Phosphatase Ammonia Total Protein Albumin Amylase Lipase Serum Alcohol Blood Type Antibody Screen [employer] Blood Bank Comment 05/31/18 05/31/18 05/31/18 13:21 13:21 13:21 WBC RBC Hgb Hct MCV MCH MCHC RDW Plt Count MPV Prelim Diff (Auto) Neut % (Auto) Lymph % (Auto) [place] % (Auto) Eos % (Auto) Baso % (Auto) Neut # (Auto) Lymph # (Auto) [place] # (Auto) Eos # (Auto) Baso # (Auto) WBC Differential Differential Comment Retic Count Absolute Retic PT INR APTT Sodium Potassium Chloride Carbon Dioxide Anion Gap BUN Creatinine Estimated GFR POC Glucose Random Glucose Lactic Acid 1.9 Calcium Prot Corrected Calcium Magnesium Ferritin 4 L Total Bilirubin AST ALT Alkaline Phosphatase Ammonia Total Protein Albumin Amylase 22 L Lipase 60 L Serum Alcohol Blood Type Antibody Screen [facility] [employer] Blood Bank Comment 05/31/18 13:21 WBC RBC Hgb Hct MCV MCH MCHC RDW Plt Count MPV Prelim Diff (Auto) Neut % (Auto) Lymph % (Auto) [place] % (Auto) Eos % (Auto) Baso % (Auto) Neut # (Auto) Lymph # (Auto) [place] # (Auto) Eos # (Auto) Baso # (Auto) WBC Differential Differential Comment Retic Count Absolute Retic PT INR APTT Sodium Potassium Chloride Carbon Dioxide Anion Gap BUN Creatinine Estimated GFR POC Glucose Random Glucose 105 Lactic Acid Calcium Prot Corrected Calcium Magnesium Ferritin Total Bilirubin AST ALT Alkaline Phosphatase Ammonia Total Protein Albumin Amylase Lipase Serum Alcohol Blood Type Antibody Screen [facility] [employer] Blood Bank Comment - Imaging Impressions Liver Ultrasound 05/31/18 00:00 CONCLUSION: 1. Cirrhosis of the liver without visible mass. 2. Significant wall thickening present within the gallbladder without visible stones. The wall thickening may be secondary to the patient's cirrhosis and ascites versus acalculous cholecystitis. This wall thickening was seen previously therefore suspected secondary to cirrhosis. 3. Splenomegaly. Moderate ascites. Chest X-Ray 05/31/18 07:19 CONCLUSION: Negative examination. <Toshia Hughes - Last Filed: 05/31/18 14:11> Assessment and Plan (1) Cirrhosis Status: Acute Code(s): K74.60 - Unspecified cirrhosis of liver (2) Hepatitis C Status: Acute Code(s): B19.20 - Unspecified viral hepatitis C without hepatic coma (3) IV drug user Status: Acute Code(s): F19.90 - Other psychoactive substance use, unspecified , uncomplicated (4) Epigastric pain Status: Acute Code(s): R10.13 - Epigastric pain (5) Melena Status: Acute Code(s): K92.1 - Melena (6) GI bleed Status: Acute Code(s): K92.2 - Gastrointestinal hemorrhage, unspecified - Plan Assessment: - Melena- Pt reports he was in his usual state of health until two days ago when he began having epigastric pain, constant, described as dull, unable to identify any aggravating or alleviating factors. Also reports tasting blood in his throat. Yesterday and this morning he had two episodes of melena, on the way back from the bathroom pt passed out and his called 911. EMS found pt in a pool of melena in his home. Pt with known cirrhosis, no history of esophageal varices. EGD and colonoscopy in September 2017 --> Normal EGD, diverticulosis, and colon polyps which pathology revealed tubular adenomas. Pt also had a SBFT which was unremarkable. He reports he did not follow up in our office after DC. - Hepatitis C, treatment naive, history of tattoos not done in parlors as well as current heroin use. - Cirrhosis Thrombocytopenia (plts 143), coagulopathy (INR 1.6) Hypoalbuminemia (albumin 2 ) secondary to cirrhosis Ammonia-70 Pt reports he quit drinking alcohol a year and a half ago. Plan: EGD today tentatively for 1 pm Obtain consent Keep NPO Protonix gtt Octreotide gtt Monitor H/H Transfusion ordered per CCM Liver US Needs to stop heroine use for outpatient Hep C treatment Lactulose Xifaxan Further recommendations based on clinical course and results of above Pt has been seen and examined by myself and Dr. Hughes and this note is written on his behalf <Tomeka Welch - Last Filed: 05/31/18 08:51> (1) Cirrhosis Status: Acute Code(s): K74.60 - Unspecified cirrhosis of liver (2) Hepatitis C Status: Acute Code(s): B19.20 - Unspecified viral hepatitis C without hepatic coma (3) IV drug user Status: Acute Code(s): F19.90 - Other psychoactive substance use, unspecified , uncomplicated (4) Epigastric pain Status: Acute Code(s): R10.13 - Epigastric pain (5) Melena Status: Acute Code(s): K92.1 - Melena (6) GI bleed Status: Acute Code(s): K92.2 - Gastrointestinal hemorrhage, unspecified - Attending Attestation Seen and examined, plan as above. Consent obtained from the patient for EGD and possible banding today. Otherwise agree with current management plan by intensive team. Thank you for the consult. <Toshia Hughes - Last Filed: 05/31/18 14:11>
--- NOTE | 2018-05-31 09:23 | US ---
EXAM DATE: 05/31/2018 9:07 AM EDT AGE/SEX: 53 years / Male INDICATIONS: Right upper quadrant pain. CLINICAL DATA: This is the patient's subsequent encounter. Patient reports that signs and symptoms h ave been present for > 1 year and indicates a pain score of 9/10. MEDICAL/SURGICAL HISTORY: Anemia. Hepatitis C. Tonsillectomy. COMPARISON: [facility] [place]IVER, 10/02/2017. . MEASUREMENTS: Liver:__ 15.8 cm. Common Bile Duct:__ 4mm. Right Kidney:__ cm. FINDINGS: Liver: Increased echotexture without focal lesion or ductal dilation. The liver demonstrates stable a ppearance of cirrhosis. Portal Vein: Hepatopedal flow seen in portal vein. Common Duct: No intraluminal mass or stone visualized. Gallbladder: The gallbladder wall is diffusely thickened measuring up to 1.5 cm in thickness. No judy dence of stones within the lumen. Pancreas: Not visualized on this exam. Right Kidney: Normal echotexture. No mass or hydronephrosis. Other: Moderate ascites. CONCLUSION: 1. Cirrhosis of the liver without visible mass. 2. Significant wall thickening present within the gallbladder without visible stones. The wall thick ening may be secondary to the patient's cirrhosis and ascites versus acalculous cholecystitis. This w all thickening was seen previously therefore suspected secondary to cirrhosis. 3. Splenomegaly. Moderate ascites. Electronically signed by: Le Fortune MD 05/31/2018 9:21 AM EDT
[2018-05-31] MEDS: Multivitamin Inj 10 ML, Thiamine Inj 100 MG, Folic Acid Inj 1 MG in Sodium Chlor 0.9% I... IV.SIG SCH (10:43)
[2018-05-31] MEDS: Mag Sulf 1 gm/100 ml Premix 100 ML IV.SIG SCH ×2 (10:56→18:52)
[2018-05-31] MEDS: Senna/Docusate Sodium 8.6/50 MG Tablet PO SCH ×2 (10:56→20:23)
[2018-05-31] MEDS: rifAXIMin 550 MG Tablet PO SCH ×2 (10:56→20:16)
[2018-05-31] MEDS ORDERED: Succinylcholine Inj 100 MG/5 ML Syringe IV.PUSH ONE (12:00)
[2018-05-31] MEDS ORDERED: Lidocaine PF 1% Inj 5 ML Syringe INFILTRATN ONE (12:00)
[2018-05-31 12:30] LABS: Reticulocyte Percent 3.3 % (0.4-3.0)
[2018-05-31 13:42] LABS: Hematocrit 21.8 % (39.0-51.0); Hemoglobin 7.1 gm/dL (13.0-17.0)
[2018-05-31 14:00] LABS: Amylase 22 U/L (25-115); Lipase 60 U/L (73-393)
[2018-05-31 14:20] LABS: % Iron Saturation 90.9 % (20-50)
--- NOTE | 2018-05-31 14:40 | GIPROC ---
[facility] [address] [facility]. [facility], [id number] EGD PROCEDURE REPORT EXAM DATE: 05/31/2018 PATIENT NAME: Shelodn Beard MR #: [id number] BIRTHDATE: 1965 ATTENDING: Toshia Hughes MD ORDER #: [id number] MANAGER MEDICAID: Curt Goldman STATUS: inpatient INDICATIONS: The patient is a 53 yr old male here for an EGD due to melena PROCEDURE PERFORMED: EGD w/ band ligation of varices MEDICATIONS: None and Per Anesthesia. TOPICAL ANESTHETIC: none CONSENT: The patient understands the risks and benefits of the procedure and understands that these risks include, but are not limited to: sedation, allergic reaction, infection, perforation and/or bleeding. Alternative means of evaluation and treatment include, among others: physical exam, x-rays, and/or surgical intervention. The patient elects to proceed with this endoscopic procedure. medical equipment was checked for proper function. Hand hygiene and appropriate measures for infection prevention was taken. After the risks, benefits and alternatives of the procedure were thoroughly explained, Informed consent was verified, confirmed and timeout was successfully executed by the treatment team. The patient was anesthetized with topical anesthesia and the Pentax EG-[id number] endoscope was introduced through the mouth and advanced to the second portion of the duodenum. Retroflexed views revealed varices The gastroscope was then slowly withdrawn and removed. ESOPHAGUS: A 3 cm hiatal hernia was noted. There were 3 columns of large varices at the esopho-gastric anastamosis and in the lower third of the esophagus. There was evidence of a red layne sign and a lau spot sign. STOMACH: There was mild gastritis in the entire examined stomach. DUODENUM: The duodenal mucosa appeared normal in the bulb and second portion of the duodenum. ADVERSE EVENTS: There were no complications. IMPRESSIONS: 1. 3 cm hiatal hernia 2. Large size varices extending form the lower third of the esophagus and involving the GE junction, 6 bands applied successfully. 3. There was mild gastritis in the entire examined stomach 4. Normal duodenal mucosa in the bulb and second portion of the duodenum RECOMMENDATIONS: 1. Hematocrit 2. ICU monitoring PATIENT CONDITION: stable DISPOSITION: Observation REPEAT EXAM: Return 6 weeks EGD Toshia Hughes MD eSigned: Toshia Hughes MD 05/31/2018 2:40 PM cc: PATIENT NAME: Sheldon Beard Osbaldo MR#: [id number]
[2018-05-31] MEDS: Sod Chloride 0.9% Inj 1,000 ML IV.CONT SCH (15:06)
[2018-05-31] MEDS: Morphine Inj 4 MG/ML Vial IV.PUSH PRN ×4 (15:59→23:22)
[2018-05-31] MEDS: Insulin NovoLOG Aspart Correctional Sugar Inj SQ SCH ×3 (17:29→23:24)
[2018-05-31 20:02] LABS: Hematocrit 20.7 % (39.0-51.0); Hemoglobin 6.6 gm/dL (13.0-17.0)
[2018-06-01] MEDS: Morphine Inj 4 MG/ML Vial IV.PUSH PRN ×5 (01:26→21:54)
[2018-06-01] MEDS ORDERED: Chlorhexidine Gluconate 2% 1 Pack (2 Cloths) TOPICAL SCH (04:00)
[2018-06-01] MEDS ORDERED: Chlorhexidine Gluconate 2% 1 Pack (2 Cloths) TOPICAL PRN (04:00)
[2018-06-01] MEDS: Octreotide Inj 500 MCG in Sodium Chlor 0.9% Inj 500 ML IV.CONT SCH ×2 (04:16→23:35)
[2018-06-01] MEDS: Sod Chloride 0.9% Inj 1,000 ML IV.CONT SCH ×2 (04:20→19:50)
[2018-06-01 05:50] LABS: Baso # (Auto) 0.1 th/mm3 (0.0-0.2); Baso % (Auto) 1.2 % (0.0-2.0); Eos % (Auto) 0.3 % (0.0-4.0); Hematocrit 26.2 % (39.0-51.0); Hemoglobin 8.8 gm/dL (13.0-17.0); Lymph % (Auto) 17.5 % (9.0-44.0); Mean Corpuscular HGB Conc 33.7 % (32.0-36.0); Mean Corpuscular Hemoglobin 24.2 pg (27.0-34.0); Mean Corpuscular Volume 71.8 fL (80.0-100.0); Mean Platelet Volume 8.6 fL (7.0-11.0); Mono # (Auto) 0.5 th/mm3 (0.0-0.9); Mono % (Auto) 7.8 % (0.0-8.0); Neut # (Auto) 4.3 th/mm3 (1.8-7.7); Neut % (Auto) 73.2 % (16.0-70.0); Platelet Count 97 th/mm3 (150-450); Red Blood Count 3.65 mil/mm3 (4.50-5.90); Red Cell Distribution Width 30.4 % (11.6-17.2); White Blood Count 5.9 th/mm3 (4.0-11.0)
[2018-06-01 05:59] LABS: Activated Partial Thrombo Time 33.4 sec (24.3-30.1); INR 1.4 Ratio; Prothrombin Time 14.5 sec (9.8-11.6)
[2018-06-01 06:12] LABS: Alanine Aminotransferase 18 U/L (12-78); Albumin 2.3 g/dL (3.4-5.0); Alkaline Phosphatase 54 U/L (45-117); Anion Gap 10 meq/L (5-15); Aspartate Aminotransferase 37 U/L (15-37); Blood Urea Nitrogen 15 mg/dL (7-18); Calcium 7.1 mg/dL (8.5-10.1); Carbon Dioxide 20.7 meq/L (21.0-32.0); Chloride 115 meq/L (98-107); Glomerular Filtration Rate Greater Than 89 mL/min (>89); Glucose,Random 111 mg/dL (74-106); Magnesium 1.9 mg/dL (1.5-2.5); Phosphorus 2.2 mg/dL (2.5-4.9); Potassium 3.3 meq/L (3.5-5.1); Sodium 146 meq/L (136-145); Total Protein 5.1 g/dL (6.4-8.2)
[2018-06-01] MEDS: Insulin NovoLOG Aspart Correctional Sugar Inj SQ SCH (06:12)
[2018-06-01] MEDS: Pantoprazole Inj 80 MG in Sodium Chlor 0.9% Inj 100 ML IV.CONT SCH ×2 (06:46→21:55)
[2018-06-01 08:12] LABS: Dimorphic RBC Present
[2018-06-01] MEDS ORDERED: Potassium Chlor 20 mEq Premix 20 MEQ/100 ML PIGGYBACK IV.SIG SCH (08:45)
[2018-06-01] MEDS: rifAXIMin 550 MG Tablet PO SCH ×2 (08:49→20:17)
[2018-06-01] MEDS: Senna/Docusate Sodium 8.6/50 MG Tablet PO SCH (08:49)
[2018-06-01] MEDS ORDERED: Potassium Chlor 20 mEq Premix 20 MEQ/100 ML PIGGYBACK IV.SIG PRN ×2 (09:22)
[2018-06-01] MEDS ORDERED: Potassium Chlor 40 mEq Premix 40 MEQ/100 ML PIGGYBACK IV.SIG PRN ×2 (09:22)
[2018-06-01] MEDS ORDERED: Magnesium Oxide 400 MG Tablet PO PRN (09:22)
[2018-06-01] MEDS ORDERED: Sodium Phosphate Inj 30 MMOL in Sodium Chlor 0.9% Inj 250 ML IV.SIG PRN (09:22)
[2018-06-01] MEDS ORDERED: Magnesium Sulfate Inj 2 GM in Sodium Chlor 0.9% Inj 96 ML IV.SIG PRN (09:22)
[2018-06-01] MEDS ORDERED: Magnesium Sulfate Inj 4 GM in Sodium Chlor 0.9% Inj 92 ML IV.SIG PRN (09:22)
[2018-06-01] MEDS ORDERED: Potassium Phosphate 500 MG Soluble Tablet PO PRN ×2 (09:22)
[2018-06-01] MEDS ORDERED: Potassium Chloride 25 MEQ Effervescent Tablet PO PRN (09:22)
[2018-06-01] MEDS ORDERED: Potassium Phosphate Inj 30 MMOL in Sodium Chlor 0.9% Inj 250 ML IV.SIG PRN (09:22)
--- NOTE | 2018-06-01 09:36 | P.PNCC ---
Subjective Subjective Remarks/Hospital Course: This is a 53-year-old male. Date of admission 05/31/2018. Past medical history includes previous admission with hemoglobin of 5.4, tubular adenoma, diverticulosis, microcytic anemia, hepatitis C untreated. 2016, patient was admitted received 2 units PRBCs. EGD was normal. Colonoscopy revealed diverticulosis and a colonic polyp which was biopsied. This revealed tubular adenoma. He will recover 8.4 and patient was discharged after small bowel series which was essentially normal. Today, this patient reports that over the past 24 hours he has had multiple episodes of dark black stool. He had a syncopal episode tonight. EMS found him on the floor with the pool of melena recovering from a syncopal episode. . States he otherwise had been feeling well only with food symptomatic chronic abdominal pain located below the umbilicus and involving the gastric region. EMS found him hypotensive, improved with some IV fluids Patient received 2 L normal saline total. Hemoglobin was 3.1. INR is 1.6. Ammonia was 70. He is currently being treated his 2 units PRBCs. He is placed on a pantoprazole drip at 8 mg an hour after receiving an 80 milligrams bolus and on octreotide drip at 50 mcg an hour. GI has been consulted for possible EGD/colonoscopy. 06/01 Patient s/p transfusion 3u PRBC overnight Hgb 8.8 this morning from 6.6. On Protonix and Octreotide drips. Patient s/p EGD yesterday showed esophageal varices s/p banding x6 Objective Vital Signs / I&O: Vital Signs 05/31/18 10:00 05/31/18 10:16 05/31/18 12:00 Temperature 99.4 F Pulse Rate 75 68 69 Respiratory Rate 22 Blood Pressure 147/72 H Pulse Oximetry 100 99 05/31/18 12:13 05/31/18 14:00 05/31/18 14:48 Temperature 98.4 F Pulse Rate 63 67 79 Respiratory Rate 12 23 Blood Pressure 138/77 Pulse Oximetry 100 05/31/18 15:00 05/31/18 15:15 05/31/18 16:00 Temperature 98.7 F Pulse Rate 71 70 84 Respiratory Rate 18 19 Blood Pressure 138/76 135/77 Pulse Oximetry 100 100 05/31/18 18:00 05/31/18 19:45 05/31/18 20:00 Temperature 99.4 F Pulse Rate 68 67 73 Respiratory Rate 18 20 Blood Pressure 124/62 Pulse Oximetry 100 98 05/31/18 20:34 05/31/18 22:00 05/31/18 23:17 Temperature 99.4 F Pulse Rate 84 65 75 Respiratory Rate 24 18 Blood Pressure 114/58 L 134/67 Pulse Oximetry 99 05/31/18 23:32 06/01/18 00:00 06/01/18 01:43 Temperature 99.4 F Pulse Rate 70 64 59 L Respiratory Rate 20 20 18 Blood Pressure 123/69 126/65 Pulse Oximetry 97 06/01/18 02:00 06/01/18 03:36 06/01/18 04:00 Temperature 99.3 F Pulse Rate 64 62 73 Respiratory Rate 18 22 Blood Pressure 116/69 Pulse Oximetry 06/01/18 06:00 06/01/18 07:00 06/01/18 07:26 Temperature Pulse Rate 64 58 L Respiratory Rate 18 Blood Pressure Pulse Oximetry 97 Intake & Output 05/31/18 06/01/18 06/01/18 18:59 06:59 18:59 Intake Total 6139.5 / 6139.5 3001.7 / 3001.7 Output Total 2371 / 2371 900 / 900 Balance 3768.5 / 3768.5 2101.7 / 2101.7 Weight 78.9 kg Intake: IV 720.5 / 720.5 2361.7 / 2361.7 SandoSTATIN Inj 500 MCG In NS 500.5 / 500.5 500.5 / 500.5 Inj 500 ML @ 50 MCG/HR 50.05 mls/hr IV.CONT .Q10H [facility] Rx#: [id number] Protonix Inj 80 MG In NS Inj 200 / 200 100 ML @ 10 mls/hr IV.CONT CONT [facility] Rx#:[id number] NS Inj 1,000 ML @ 84 mls/hr IV. 1000 / 1000 CONT .[id number] [facility] Rx#:[id number] Calcium Chloride Inj 2 GM In NS 120 / 120 Inj 100 ML @ 120 mls/hr IV.SIG ONCE ONE Rx#:[id number] Magnesium Sulfate 1 gm/D5W 100 100 / 100 100 / 100 ml Premix 100 ML @ 100 mls/hr IV.SIG Q1H [facility] Rx#:[id number] MVI-12 Inj 10 ML Thiamine Inj 511.2 / 511.2 100 MG Folvite Inj 1 MG In NS Inj 500 ML @ 125 mls/hr IV.SIG Q24H [facility] Rx#:[id number] Oral 400 / 400 240 / 240 Anesthesia Amount 1100 / 1100 Other 400 / 400 Rbc As-3 Leukoreduced Unit 400 / 400 [id number] Intake (Blood Product) Amt 191 / 191 400 / 400 Plasma Thawed 5 Day Cp2d Unit 319 / 319 [id number] Rbc As-3 Leukoreduced Unit 400 / 400 [id number] Rbc As-3 Leukoreduced Unit 400 / 400 [id number] Rbc As-3 Leukoreduced Unit 0 / 0 [id number] Rbc As-3 Leukoreduced Unit 400 / 400 [id number] Rbc As-3 Leukoreduced Unit 400 / 400 [id number] Rbc As-3 Leukoreduced Unit 400 / 400 [id number] Rbc As-3 Leukoreduced Unit 0 / 0 [id number] Mass Transfusion Protocol 1600 / 1600 Output: Urine 2350 / 2350 900 / 900 Estimated Blood Loss Other: Date of Last Bowel Movement 05/31/18 05/31/18 # Bowel Movements 6 8 Result Diagrams: 06/01/18 05:27 06/01/18 05:27 Other Results: Laboratory Results - last 12 hr 05/31/18 05/31/18 06/01/18 05:50 20:08 05:27 WBC RBC Hgb Hct MCV MCH MCHC RDW Plt Count MPV Prelim Diff (Auto) Neut % (Auto) Lymph % (Auto) [place] % (Auto) Eos % (Auto) Baso % (Auto) Neut # (Auto) Lymph # (Auto) [place] # (Auto) Eos # (Auto) Baso # (Auto) WBC Differential Diff Scan Differential Comment Dimorphic RBCs PT 14.5 H INR 1.4 APTT 33.4 H Fibrinogen 117 L Sodium Potassium Chloride Carbon Dioxide Anion Gap BUN Creatinine Estimated GFR POC Glucose Random Glucose Calcium Prot Corrected Calcium Phosphorus Magnesium Total Bilirubin AST ALT Alkaline Phosphatase Ammonia Total Protein Albumin Hep C IgG Ab Blood Type O Positive Antibody Screen Negative MTS Gel Crossmatch See Detail See Detail Bld Prod Order Comment 06/01/18 06/01/18 06/01/18 05:27 05:27 05:27 WBC 5.9 RBC 3.65 L Hgb 8.8 L D Hct 26.2 L MCV 71.8 L D MCH 24.2 L MCHC 33.7 RDW 30.4 H D Plt Count 97 L D MPV 8.6 Prelim Diff (Auto) Slide review pending Neut % (Auto) 73.2 H Lymph % (Auto) 17.5 [place] % (Auto) 7.8 Eos % (Auto) 0.3 Baso % (Auto) 1.2 Neut # (Auto) 4.3 Lymph # (Auto) 1.0 [place] # (Auto) 0.5 Eos # (Auto) 0.0 Baso # (Auto) 0.1 WBC Differential . Diff Scan Auto diff confirmed Differential Comment . Dimorphic RBCs Present H PT INR APTT Fibrinogen Sodium 146 H Potassium 3.3 L D Chloride 115 H Carbon Dioxide 20.7 L Anion Gap 10 BUN 15 Creatinine 0.69 Estimated GFR Greater than 89 POC Glucose Random Glucose 111 H Calcium 7.1 L* Prot Corrected Calcium 8.2 L Phosphorus 2.2 L Magnesium 1.9 Total Bilirubin 3.8 H AST 37 ALT 18 Alkaline Phosphatase 54 Ammonia Total Protein 5.1 L Albumin 2.3 L Hep C IgG Ab Reactive H Blood Type Antibody Screen MTS Gel Crossmatch Bld Prod Order Comment 06/01/18 06/01/18 05:27 05:27 WBC RBC Hgb Hct MCV MCH MCHC RDW Plt Count MPV Prelim Diff (Auto) Neut % (Auto) Lymph % (Auto) [place] % (Auto) Eos % (Auto) Baso % (Auto) Neut # (Auto) Lymph # (Auto) [place] # (Auto) Eos # (Auto) Baso # (Auto) WBC Differential Diff Scan Differential Comment Dimorphic RBCs PT INR APTT Fibrinogen Sodium Potassium Chloride Carbon Dioxide Anion Gap BUN Creatinine Estimated GFR POC Glucose 131 H Random Glucose Calcium Prot Corrected Calcium Phosphorus Magnesium Total Bilirubin AST ALT Alkaline Phosphatase Ammonia 60 H Total Protein Albumin Hep C IgG Ab Blood Type Antibody Screen MTS Gel Crossmatch Bld Prod Order Comment Imaging: Liver Ultrasound 05/31/18 00:00 CONCLUSION: 1. Cirrhosis of the liver without visible mass. 2. Significant wall thickening present within the gallbladder without visible stones. The wall thickening may be secondary to the patient's cirrhosis and ascites versus acalculous cholecystitis. This wall thickening was seen previously therefore suspected secondary to cirrhosis. 3. Splenomegaly. Moderate ascites. Chest X-Ray 05/31/18 07:19 CONCLUSION: Negative examination. Objective Remarks: GENERAL: Patient is 53yo lying in bed in NAD SKIN: Warm and dry. HEAD: Normocephalic. EYES: No scleral icterus. No injection or drainage. NECK: Supple, trachea midline. No JVD or lymphadenopathy. CARDIOVASCULAR: Regular rate and rhythm without murmurs, gallops, or rubs. RESPIRATORY: Breath sounds equal bilaterally. No accessory muscle use. GASTROINTESTINAL: Abdomen soft, non-tender, nondistended. MUSCULOSKELETAL: No cyanosis, or edema. Neuro: Awake Assessment and Plan - Assessment and Plan Plan: Neuro/Psych: Polysubstance abuse including heroin History of EtOH abuse Acetaminophen 1 g IV every 8 hours as needed fever/pain 1 through 10 Morphine sulfate 2 mg IV every 2 hours as needed breakthrough pain Denies current EtOH abuse. On thiamine 100 mg IV daily CV: Currently normal saline at 84 cc an hour Monitor HR and BP keep MAP>65mmHg Lactic acid: 1.9 Resp: Ongoing tobaccoism Continue with oxygen keep sats > 92% Incentive spirometry while awake Albuterol/ipratropium aerosols every 4 hours with albuterol aerosols every 2 hours as needed for dyspnea CXR 05/31: No acute disease GI: History of tubular adenoma Colonic diverticulosis Melena/coffee-ground emesis Hyperammonia Hypoalbuminemia Hepatitis C antibody positive Patient is currently on a pantoprazole drip at 8 mg an hour and octreotide drip at 50 mcg an hour Negative/normal EGD 2016 with colonic diverticulosis/tubular adenoma. Negative small bowel series. GI is following. s/p EGD 05/31 showed esophageal varices s/p banding Lactulose 30 cc twice daily/Xifaxan 550 twice daily. Liver ultrasound: Cirrhosis of the liver without visible mass. Significant wall thickening present within the gallbladder without visible stones. The wall thickening may be secondary to the patient's cirrhosis and ascites versus acalculous cholecystitis. This wall thickening was seen previously therefore suspected secondary to cirrhosis. Splenomegaly. Moderate ascites. Will proceed with US guided paracentesis and send peritoneal fluid for analysis/ culture Hepatitis C genotype and viral load pending Amylase and lipase with normal limites. Endo: Sliding scale insulin Accu-Cheks every 6 hours to maintain euglycemia/aspart low regimen Renal: Monitor renal function, I/O's, electrolytes replacement per protocol. On NS@84ml/hr Heme: Acute microcytic anemia Thrombocytopenia Elevated INR s/p Transfusion 6u PRBCs total, 1 FFP. s/p Vitamin K 5 milligrams 1 now. ID: Ceftriaxone 1 g IV daily with upper GI bleed Monitor for signs of hematology infection MSK: PT evaluate and treat Access -Utilize peripheral IV. Central line if indicated Prophylaxis -GI -pantoprazole drip -DVT -SCD/pharmacological prophylaxis contraindicated with active hemorrhage/GI bleed Level 2
[2018-06-01] MEDS: Multivitamin Inj 10 ML, Thiamine Inj 100 MG, Folic Acid Inj 1 MG in Sodium Chlor 0.9% I... IV.SIG SCH (12:00)
--- NOTE | 2018-06-01 14:40 | P.PNGI ---
Subjective Interval history: Pt very agitated today, currently on CIWA protocol for withdraw. Reports BMs, was told by nurse they seem to be clearing up. Some epigastric pain. Denies nausea, vomiting. Tolerating liquid diet. <Tomeka Welch - Last Filed: 06/01/18 14:34> Physical Exam Vital signs: Vital Signs 05/31/18 14:48 05/31/18 15:00 05/31/18 15:15 Temperature 98.4 F 98.7 F Pulse Rate 79 71 70 Respiratory Rate 23 18 19 Blood Pressure 138/77 138/76 135/77 Pulse Oximetry 100 100 100 05/31/18 16:00 05/31/18 18:00 05/31/18 19:45 Temperature Pulse Rate 84 68 67 Respiratory Rate 18 Blood Pressure Pulse Oximetry 100 05/31/18 20:00 05/31/18 20:34 05/31/18 22:00 Temperature 99.4 F 99.4 F Pulse Rate 73 84 65 Respiratory Rate 20 24 Blood Pressure 124/62 114/58 L Pulse Oximetry 98 05/31/18 23:17 05/31/18 23:32 06/01/18 00:00 Temperature 99.4 F Pulse Rate 75 70 64 Respiratory Rate 18 20 20 Blood Pressure 134/67 123/69 Pulse Oximetry 99 06/01/18 01:43 06/01/18 02:00 06/01/18 03:36 Temperature Pulse Rate 59 L 64 62 Respiratory Rate 18 18 Blood Pressure 126/65 Pulse Oximetry 97 06/01/18 04:00 06/01/18 06:00 06/01/18 07:00 Temperature 99.3 F Pulse Rate 73 64 Respiratory Rate 22 Blood Pressure 116/69 Pulse Oximetry 97 06/01/18 07:26 06/01/18 08:00 06/01/18 10:00 Temperature Pulse Rate 58 L 58 L 58 L Respiratory Rate 18 Blood Pressure Pulse Oximetry 06/01/18 12:00 Temperature Pulse Rate 58 L Respiratory Rate Blood Pressure Pulse Oximetry Intake & Output 05/31/18 06/01/18 06/01/18 18:59 06:59 18:59 Intake Total 6139.5 / 6139.5 3001.7 / 3001.7 Output Total 2371 / 2371 900 / 900 Balance 3768.5 / 3768.5 2101.7 / 2101.7 Weight 78.9 kg Intake: IV 720.5 / 720.5 2361.7 / 2361.7 SandoSTATIN Inj 500 MCG In NS 500.5 / 500.5 500.5 / 500.5 Inj 500 ML @ 50 MCG/HR 50.05 mls/hr IV.CONT .Q10H [facility] Rx#: [id number] Protonix Inj 80 MG In NS Inj 200 / 200 100 ML @ 10 mls/hr IV.CONT CONT [facility] Rx#:[id number] NS Inj 1,000 ML @ 84 mls/hr IV. 1000 / 1000 CONT .[id number] [facility] Rx#:[id number] Calcium Chloride Inj 2 GM In NS 120 / 120 Inj 100 ML @ 120 mls/hr IV.SIG ONCE ONE Rx#:[id number] Magnesium Sulfate 1 gm/D5W 100 100 / 100 100 / 100 ml Premix 100 ML @ 100 mls/hr IV.SIG Q1H [facility] Rx#:[id number] MVI-12 Inj 10 ML Thiamine Inj 511.2 / 511.2 100 MG Folvite Inj 1 MG In NS Inj 500 ML @ 125 mls/hr IV.SIG Q24H [facility] Rx#:[id number] Oral 400 / 400 240 / 240 Anesthesia Amount 1100 / 1100 Other 400 / 400 Rbc As-3 Leukoreduced Unit 400 / 400 [id number] Intake (Blood Product) Amt 1918 400 / 400 Plasma Thawed 5 Day Cp2d Unit 319 / 319 [id number] Rbc As-3 Leukoreduced Unit 400 / 400 [id number] Rbc As-3 Leukoreduced Unit 400 / 400 [id number] Rbc As-3 Leukoreduced Unit 0 / 0 [id number] Rbc As-3 Leukoreduced Unit 400 / 400 [id number] Rbc As-3 Leukoreduced Unit 400 / 400 [id number] Rbc As-3 Leukoreduced Unit 400 / 400 [id number] Rbc As-3 Leukoreduced Unit 0 / 0 [id number] Mass Transfusion Protocol 1600 / 1600 Output: Urine 2350 / 2350 900 / 900 Estimated Blood Loss Other: Date of Last Bowel Movement 05/31/18 05/31/18 06/01/18 # Bowel Movements 6 8 - Constitutional mild distress - Routine HEENT Exam Head: Present: normocephalic, atraumatic Eye: Present: conjunctival icterus - Routine Respiratory Exam Absent: accessory muscle use - Routine Cardiovascular Exam Present: RRR - Routine Abdominal Exam Present: soft, normoactive bowel sounds. Absent: tenderness, distended, rebound , guarding, firm - Routine Skin Exam Present: dry, warm, jaundice - Routine Neurological Exam Present: alert, oriented X3 - Routine Psychiatric Exam Present: anxious <Tomeka Welch - Last Filed: 06/01/18 14:34> Vital signs: Vital Signs 05/31/18 19:45 05/31/18 20:00 05/31/18 20:34 Temperature 99.4 F 99.4 F Pulse Rate 67 73 84 Respiratory Rate 18 20 24 Blood Pressure 124/62 114/58 L Pulse Oximetry 100 98 05/31/18 22:00 05/31/18 23:17 05/31/18 23:32 Temperature Pulse Rate 65 75 70 Respiratory Rate 18 20 Blood Pressure 134/67 Pulse Oximetry 99 06/01/18 00:00 06/01/18 01:43 06/01/18 02:00 Temperature 99.4 F Pulse Rate 64 59 L 64 Respiratory Rate 20 18 Blood Pressure 123/69 126/65 Pulse Oximetry 97 06/01/18 03:36 06/01/18 04:00 06/01/18 06:00 Temperature 99.3 F Pulse Rate 62 73 64 Respiratory Rate 18 22 Blood Pressure 116/69 Pulse Oximetry 06/01/18 07:00 06/01/18 07:26 06/01/18 08:00 Temperature Pulse Rate 58 L 58 L Respiratory Rate 18 Blood Pressure Pulse Oximetry 97 06/01/18 10:00 06/01/18 12:00 06/01/18 14:00 Temperature Pulse Rate 58 L 58 L 54 L Respiratory Rate Blood Pressure Pulse Oximetry 06/01/18 15:16 06/01/18 16:00 06/01/18 18:00 Temperature 99.6 F Pulse Rate 54 L 60 60 Respiratory Rate 18 Blood Pressure 118/68 Pulse Oximetry 97 Intake & Output 06/01/18 06/01/18 06/02/18 06:59 18:59 06:59 Intake Total 3001.7 / 3001.7 2980 / 2980 Output Total 900 / 900 920 / 920 Balance 2101.7 / 2101.7 2059 / 2059 Weight 78.9 kg Intake: IV 2361.7 / 2361.7 SandoSTATIN Inj 500 MCG In NS 500.5 / 500.5 Inj 500 ML @ 50 MCG/HR 50.05 mls/hr IV.CONT .Q10H [facility] Rx#: [id number] Protonix Inj 80 MG In NS Inj 200 / 200 100 ML @ 10 mls/hr IV.CONT CONT [facility] Rx#:[id number] NS Inj 1,000 ML @ 84 mls/hr IV. 1000 / 1000 CONT .[id number] [facility] Rx#:[id number] Magnesium Sulfate 1 gm/D5W 100 100 / 100 ml Premix 100 ML @ 100 mls/hr IV.SIG Q1H [facility] Rx#:[id number] MVI-12 Inj 10 ML Thiamine Inj 511.2 / 511.2 100 MG Folvite Inj 1 MG In NS Inj 500 ML @ 125 mls/hr IV.SIG Q24H [facility] Rx#:[id number] Oral 240 / 240 680 / 680 Anesthesia Amount 700 / 700 Intake (Blood Product) Amt 400 / 400 Rbc As-3 Leukoreduced Unit 400 / 400 [id number] Rbc As-3 Leukoreduced Unit 0 / 0 [id number] Rbc As-3 Leukoreduced Unit 0 / 0 [id number] Mass Transfusion Protocol 1600 / 1600 Output: Urine 900 / 900 900 / 900 Estimated Blood Loss Other: Date of Last Bowel Movement 05/31/18 06/01/18 # Bowel Movements 8 8 <Mook Bruce E - Last Filed: 06/01/18 19:42> Results - Labs CBC & Chem 7: 06/01/18 05:27 06/01/18 05:27 Laboratory Results - last 24 hr 05/31/18 05/31/18 05/31/18 05:50 13:21 15:07 WBC RBC Hgb Hct MCV MCH MCHC RDW Plt Count MPV Prelim Diff (Auto) Neut % (Auto) Lymph % (Auto) [place] % (Auto) Eos % (Auto) Baso % (Auto) Neut # (Auto) Lymph # (Auto) [place] # (Auto) Eos # (Auto) Baso # (Auto) WBC Differential Diff Scan Differential Comment Dimorphic RBCs PT INR APTT Fibrinogen Sodium Potassium Chloride Carbon Dioxide Anion Gap BUN Creatinine Estimated GFR POC Glucose 112 H Random Glucose Calcium Prot Corrected Calcium Phosphorus Magnesium Total Bilirubin AST ALT Alkaline Phosphatase Ammonia Total Protein Albumin Hep C IgG Ab Misc Test Result Blood Type O Positive Antibody Screen Negative MTS Gel Crossmatch See Detail Constructd Prod Order Comment 05/31/18 05/31/18 06/01/18 19:34 20:08 05:27 WBC RBC Hgb 6.6 L* Hct 20.7 L* MCV MCH MCHC RDW Plt Count MPV Prelim Diff (Auto) Neut % (Auto) Lymph % (Auto) [place] % (Auto) Eos % (Auto) Baso % (Auto) Neut # (Auto) Lymph # (Auto) [place] # (Auto) Eos # (Auto) Baso # (Auto) WBC Differential Diff Scan Differential Comment Dimorphic RBCs PT 14.5 H INR 1.4 APTT 33.4 H Fibrinogen 117 L Sodium Potassium Chloride Carbon Dioxide Anion Gap BUN Creatinine Estimated GFR POC Glucose Random Glucose Calcium Prot Corrected Calcium Phosphorus Magnesium Total Bilirubin AST ALT Alkaline Phosphatase Ammonia Total Protein Albumin Hep C IgG Ab Misc Test Result Blood Type Antibody Screen MTS Gel Crossmatch See Detail Constructd Prod Order Comment 06/01/18 06/01/18 06/01/18 05:27 05:27 05:27 WBC 5.9 RBC 3.65 L Hgb 8.8 L D Hct 26.2 L MCV 71.8 L D MCH 24.2 L MCHC 33.7 RDW 30.4 H D Plt Count 97 L D MPV 8.6 Prelim Diff (Auto) Slide review pending Neut % (Auto) 73.2 H Lymph % (Auto) 17.5 [place] % (Auto) 7.8 Eos % (Auto) 0.3 Baso % (Auto) 1.2 Neut # (Auto) 4.3 Lymph # (Auto) 1.0 [place] # (Auto) 0.5 Eos # (Auto) 0.0 Baso # (Auto) 0.1 WBC Differential . Diff Scan Auto diff confirmed Differential Comment . Dimorphic RBCs Present H PT INR APTT Fibrinogen Sodium 146 H Potassium 3.3 L D Chloride 115 H Carbon Dioxide 20.7 L Anion Gap 10 BUN 15 Creatinine 0.69 Estimated GFR Greater than 89 POC Glucose Random Glucose 111 H Calcium 7.1 L* Prot Corrected Calcium 8.2 L Phosphorus 2.2 L Magnesium 1.9 Total Bilirubin 3.8 H AST 37 ALT 18 Alkaline Phosphatase 54 Ammonia Total Protein 5.1 L Albumin 2.3 L Hep C IgG Ab Reactive H Misc Test Result Blood Type Antibody Screen MTS Gel Crossmatch Bld Prod Order Comment 06/01/18 06/01/18 05:27 05:27 WBC RBC Hgb Hct MCV MCH MCHC RDW Plt Count MPV Prelim Diff (Auto) Neut % (Auto) Lymph % (Auto) [place] % (Auto) Eos % (Auto) Baso % (Auto) Neut # (Auto) Lymph # (Auto) [place] # (Auto) Eos # (Auto) Baso # (Auto) WBC Differential Diff Scan Differential Comment Dimorphic RBCs PT INR APTT Fibrinogen Sodium Potassium Chloride Carbon Dioxide Anion Gap BUN Creatinine Estimated GFR POC Glucose 131 H Random Glucose Calcium Prot Corrected Calcium Phosphorus Magnesium Total Bilirubin AST ALT Alkaline Phosphatase Ammonia 60 H Total Protein Albumin Hep C IgG Ab Misc Test Result Blood Type Antibody Screen MTS Gel Crossmatch Bld Prod Order Comment <Tomeka Welch - Last Filed: 06/01/18 14:34> - Labs CBC & Chem 7: 06/01/18 05:27 06/01/18 05:27 Laboratory Results - last 24 hr 05/31/18 05/31/18 05/31/18 05:50 19:34 20:08 WBC RBC Hgb 6.6 L* Hct 20.7 L* MCV MCH MCHC RDW Plt Count MPV Prelim Diff (Auto) Neut % (Auto) Lymph % (Auto) [place] % (Auto) Eos % (Auto) Baso % (Auto) Neut # (Auto) Lymph # (Auto) [place] # (Auto) Eos # (Auto) Baso # (Auto) WBC Differential Diff Scan Differential Comment Dimorphic RBCs PT INR APTT Fibrinogen Sodium Potassium Chloride Carbon Dioxide Anion Gap BUN Creatinine Estimated GFR POC Glucose Random Glucose Calcium Prot Corrected Calcium Phosphorus Magnesium Total Bilirubin AST ALT Alkaline Phosphatase Ammonia Total Protein Albumin Hep C IgG Ab Blood Type O Positive Antibody Screen Negative MTS Gel Crossmatch See Detail See Detail Bld Prod Order Comment 06/01/18 06/01/18 06/01/18 05:27 05:27 05:27 WBC 5.9 RBC 3.65 L Hgb 8.8 L D Hct 26.2 L MCV 71.8 L D MCH 24.2 L MCHC 33.7 RDW 30.4 H D Plt Count 97 L D MPV 8.6 Prelim Diff (Auto) Slide review pending Neut % (Auto) 73.2 H Lymph % (Auto) 17.5 [place] % (Auto) 7.8 Eos % (Auto) 0.3 Baso % (Auto) 1.2 Neut # (Auto) 4.3 Lymph # (Auto) 1.0 [place] # (Auto) 0.5 Eos # (Auto) 0.0 Baso # (Auto) 0.1 WBC Differential . Diff Scan Auto diff confirmed Differential Comment . Dimorphic RBCs Present H PT 14.5 H INR 1.4 APTT 33.4 H Fibrinogen 117 L Sodium Potassium Chloride Carbon Dioxide Anion Gap BUN Creatinine Estimated GFR POC Glucose Random Glucose Calcium Prot Corrected Calcium Phosphorus Magnesium Total Bilirubin AST ALT Alkaline Phosphatase Ammonia Total Protein Albumin Hep C IgG Ab Reactive H Blood Type Antibody Screen MTS Gel Crossmatch Bld Prod Order Comment 06/01/18 06/01/18 06/01/18 05:27 05:27 05:27 WBC RBC Hgb Hct MCV MCH MCHC RDW Plt Count MPV Prelim Diff (Auto) Neut % (Auto) Lymph % (Auto) [place] % (Auto) Eos % (Auto) Baso % (Auto) Neut # (Auto) Lymph # (Auto) [place] # (Auto) Eos # (Auto) Baso # (Auto) WBC Differential Diff Scan Differential Comment Dimorphic RBCs PT INR APTT Fibrinogen Sodium 146 H Potassium 3.3 L D Chloride 115 H Carbon Dioxide 20.7 L Anion Gap 10 BUN 15 Creatinine 0.69 Estimated GFR Greater than 89 POC Glucose 131 H Random Glucose 111 H Calcium 7.1 L* Prot Corrected Calcium 8.2 L Phosphorus 2.2 L Magnesium 1.9 Total Bilirubin 3.8 H AST 37 ALT 18 Alkaline Phosphatase 54 Ammonia 60 H Total Protein 5.1 L Albumin 2.3 L Hep C IgG Ab Blood Type Antibody Screen MTS Gel Crossmatch Bld Prod Order Comment 06/01/18 16:20 WBC RBC Hgb Hct MCV MCH MCHC RDW Plt Count MPV Prelim Diff (Auto) Neut % (Auto) Lymph % (Auto) [place] % (Auto) Eos % (Auto) Baso % (Auto) Neut # (Auto) Lymph # (Auto) [place] # (Auto) Eos # (Auto) Baso # (Auto) WBC Differential Diff Scan Differential Comment Dimorphic RBCs PT INR APTT Fibrinogen Sodium Potassium Chloride Carbon Dioxide Anion Gap BUN Creatinine Estimated GFR POC Glucose 133 H Random Glucose Calcium Prot Corrected Calcium Phosphorus Magnesium Total Bilirubin AST ALT Alkaline Phosphatase Ammonia Total Protein Albumin Hep C IgG Ab Blood Type Antibody Screen MTS Gel Crossmatch Bld Prod Order Comment - Imaging Impressions Abdomen Ultrasound 06/01/18 00:00 CONCLUSION: 1. There is only a small volume of free fluid in the abdomen and pelvis without enough fluid present for safe paracentesis. 2. Liver demonstrates features diagnostic of cirrhosis. <Mook Bruce E - Last Filed: 06/01/18 19:42> Assessment and Plan (1) Cirrhosis Status: Acute Code(s): K74.60 - Unspecified cirrhosis of liver (2) Hepatitis C Status: Acute Code(s): B19.20 - Unspecified viral hepatitis C without hepatic coma (3) IV drug user Status: Acute Code(s): F19.90 - Other psychoactive substance use, unspecified , uncomplicated (4) Epigastric pain Status: Acute Code(s): R10.13 - Epigastric pain (5) Melena Status: Acute Code(s): K92.1 - Melena (6) GI bleed Status: Acute Code(s): K92.2 - Gastrointestinal hemorrhage, unspecified - Plan Assessment: - Melena- Pt reports he was in his usual state of health until two days ago when he began having epigastric pain, constant, described as dull, unable to identify any aggravating or alleviating factors. Also reports tasting blood in his throat. Yesterday and this morning he had two episodes of melena, on the way back from the bathroom pt passed out and his called 911. EMS found pt in a pool of melena in his home. Pt with known cirrhosis, no history of esophageal varices. EGD and colonoscopy in September 2017 --> Normal EGD, diverticulosis, and colon polyps which pathology revealed tubular adenomas. Pt also had a SBFT which was unremarkable. He reports he did not follow up in our office after DC. - Hepatitis C, treatment naive, history of tattoos not done in parlors as well as current heroin use. - Cirrhosis Thrombocytopenia (plts 143), coagulopathy (INR 1.6) Hypoalbuminemia (albumin 2 ) secondary to cirrhosis Ammonia-70 Pt reports he quit drinking alcohol a year and a half ago. Liver US --> Cirrhosis of the liver without visible mass. Significant wall thickening present within the gallbladder without visible stones. The wall thickening may be secondary to the patient's cirrhosis and ascites versus acalculous cholecystitis. This wall thickening was seen previously therefore suspected secondary to cirrhosis. Splenomegaly. Moderate ascites. 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 Hgb 6.7 last night, pt received an additional 3 U PRBCs, has now had 6 total. H/H currently 8.8/26.2. Pt reports multiple BMs and was told by the nurses they seem to be clearing up. Complaints of epigastric pain. Denies nausea, vomiting. Tolerating liquid diet. Plan: Protonix gtt Octreotide gtt Hep C genotype and quant pending Lactulose Xifaxan CIWA protocol Liquid diet Further recommendations based on clinical course and results of above Pt has been seen and examined by myself and Dr. Bruce and this note is written on his behalf <Tomeka Welch - Last Filed: 06/01/18 14:34> (1) Cirrhosis Status: Acute Code(s): K74.60 - Unspecified cirrhosis of liver (2) Hepatitis C Status: Acute Code(s): B19.20 - Unspecified viral hepatitis C without hepatic coma (3) IV drug user Status: Acute Code(s): F19.90 - Other psychoactive substance use, unspecified , uncomplicated (4) Epigastric pain Status: Acute Code(s): R10.13 - Epigastric pain (5) Melena Status: Acute Code(s): K92.1 - Melena (6) GI bleed Status: Acute Code(s): K92.2 - Gastrointestinal hemorrhage, unspecified - Attending Attestation Patient was seen and examined Agree with above Continue with current supportive care Monitor labs <Mook Bruce - Last Filed: 06/01/18 19:42>
--- NOTE | 2018-06-01 15:45 | US ---
EXAM DATE: 06/01/2018 3:14 PM EDT AGE/SEX: 53 years / Male INDICATIONS: Ascites. CLINICAL DATA: This is the patient's subsequent encounter. Patient reports that signs and symptoms h ave been present for 3 days and indicates a pain score of 2/10. MEDICAL/SURGICAL HISTORY: Hepatitis C. Anemia. Tonsillectomy. COMPARISON: [facility] [place] ABDOMEN [place]IVER, 05/31/2018. . FINDINGS: Grayscale and Doppler ultrasound imaging was performed in all 4 quadrants. There is trace volume of f ree fluid in the inferior right lower quadrant. There is also trace fluid around the liver. The liver demonstrates a nodular contour. CONCLUSION: 1. There is only a small volume of free fluid in the abdomen and pelvis without enough fluid present for safe paracentesis. 2. Liver demonstrates features diagnostic of cirrhosis. Electronically signed by: Sandip Saleem MD 06/01/2018 3:43 PM EDT
[2018-06-02] MEDS: Morphine Inj 4 MG/ML Vial IV.PUSH PRN ×3 (00:03→06:07)
[2018-06-02 03:48] LABS: Baso % (Auto) 0.4 % (0.0-2.0); Eos % (Auto) 0.3 % (0.0-4.0); Hematocrit 30.3 % (39.0-51.0); Hemoglobin 9.7 gm/dL (13.0-17.0); Lymph # (Auto) 1.2 th/mm3 (1.0-4.8); Mean Corpuscular HGB Conc 32.2 % (32.0-36.0); Mean Corpuscular Volume 74.6 fL (80.0-100.0); Mean Platelet Volume 8.4 fL (7.0-11.0); Mono # (Auto) 0.6 th/mm3 (0.0-0.9); Mono % (Auto) 5.8 % (0.0-8.0); Neut # (Auto) 8.9 th/mm3 (1.8-7.7); Neut % (Auto) 82.5 % (16.0-70.0); Platelet Count 120 th/mm3 (150-450); Red Blood Count 4.06 mil/mm3 (4.50-5.90); Red Cell Distribution Width 30.6 % (11.6-17.2); White Blood Count 10.8 th/mm3 (4.0-11.0)
[2018-06-02 04:15] LABS: Anion Gap 10 meq/L (5-15); Blood Urea Nitrogen 9 mg/dL (7-18); Carbon Dioxide 20.8 meq/L (21.0-32.0); Chloride 116 meq/L (98-107); Glomerular Filtration Rate Greater Than 89 mL/min (>89); Glucose,Random 83 mg/dL (74-106); Potassium 3.3 meq/L (3.5-5.1); Sodium 147 meq/L (136-145)
[2018-06-02 04:39] LABS: Total Protein 5.7 g/dL (6.4-8.2)
[2018-06-02 04:48] LABS: Ovalocytes 1+; Platelet Morphology Normal (Normal)
[2018-06-02] MEDS: Senna/Docusate Sodium 8.6/50 MG Tablet PO SCH (05:15)
[2018-06-02] MEDS: Octreotide Inj 500 MCG in Sodium Chlor 0.9% Inj 500 ML IV.CONT SCH (05:17)
[2018-06-02] MEDS ORDERED: Acetaminophen 500 MG Tablet PO SCH (08:00)
--- NOTE | 2018-06-02 21:15 | ECG ---
Date Performed: 05/31/2018 Time Performed: 16:36:42 PTAGE: 53 years EKG: Sinus rhythm NORMAL ECG PREVIOUS TRACING : 10/02/2017 11.57 No significant change when compared with previous DOCTOR: Comfort Gallardo Interpretating Date/Time 06/02/2018 21:14:01
[2018-06-04 17:52] LABS: Hepatitis C RNA (PCR) log IUs 6.07 (0-1.18)
== END 2018-06-02 07:28 | disposition left against medical advice (07) ==
LOC: NEPE 05:31 → NEDA 07:23 → HIMC 09:10
PROVIDERS: ADMIT Internal Medicine Critical Care Medicine; ATTEND Internal Medicine Critical Care Medicine
DX: R55 Syncope and collapse; K92.0 Hematemesis; F17.210 Nicotine dependence, cigarettes, uncomplicated; Y90.0 Blood alcohol level of less than 20 mg/100 ml; R16.1 Splenomegaly, not elsewhere classified; F19.10 Other psychoactive substance abuse, uncomplicated; I85.11 Secondary esophageal varices with bleeding; B19.20 Unspecified viral hepatitis C without hepatic coma; I95.9 Hypotension, unspecified; F10.10 Alcohol abuse, uncomplicated; K74.60 Unspecified cirrhosis of liver; K44.9 Diaphragmatic hernia without obstruction or gangrene; D69.59 Other secondary thrombocytopenia; D50.9 Iron deficiency anemia, unspecified; E88.09 Other disorders of plasma-protein metabolism, not elsewhere classified; D68.9 Coagulation defect, unspecified; R18.8 Other ascites